=== PATIENT | male | born 1960 | race Caucasian/White ===

== ENCOUNTER → 2021-09-21 11:34 | Outpatient (CLI) | payer OTHER, SELFPAY ==
[2021-09-21 15:42] LABS: ALB/GLOB Ratio 0.9 RATIO (0.9-2.4); AST(SGOT) 20 U/L (15-37); Alanine Aminotransfer ALT/SGPT 30 U/L (16-61); Albumin, Serum 3.4 g/dL (3.2-5.0); Alkaline Phosphatase 99 U/L (45-117); Anion Gap 5 (5-15); BUN 19 mg/dL (7-18); BUN/Creat Ratio 17.4 RATIO (10-20); Chloride 106 mmol/L (98-107); Cholesterol 179 mg/dL (200); Creatinine, Serum 1.09 mg/dL (0.70-1.30); EST Glomerular Filtration Rate 73 mL/min (>60); Est Glom Filt Rate - Afr Amer 88 mL/min (>60); Globulin 3.7 g/dL (2.2-4.2); Glucose 85 mg/dL (74-106); High Density Lipoprotein 39 mg/dL; PSA,Total - Annual Screen 1.64 ng/mL (0.00-4.00); Potassium 3.8 mmol/L (3.5-5.1); Protein, Total 7.1 g/dL (6.4-8.2); Sodium Level 140 mmol/L (136-145); Triglycerides 85 mg/dL; Very Low Density Lipoprotein 17 mg/dL (5-40)
== END ==
LOC: MFPLAB 11:37
PROVIDERS: PCP Family Medicine; Referring Provider Family Medicine; Visit Provider Family Medicine
DX: Z00.00 Encounter for general adult medical examination without abnormal findings (principal); Z12.5 Encounter for screening for malignant neoplasm of prostate; I10 Essential (primary) hypertension
CPT/HCPCS: 36415; 80053; 80061; 84153; 84403; G0103

== ENCOUNTER → 2021-10-04 11:40 | Outpatient (CLI) | payer OTHER, SELFPAY ==
[2021-10-04 15:06] LABS: Absolute Lymphocyte Count 2.17 X10^3/uL (0.83-4.51); Basophil# 0.02 X10^3/uL; Basophil% 0.3 % (0-1); Eosinophil# 0.02 X10^3/uL; Eosinophils% 0.3 % (0-5); Hematocrit 48.7 % (40-54); Hemoglobin 16.2 g/dL (13.0-16.5); Lymphocyte # 2.17 X10^3/ul (0.83-4.51); Lymphocyte % 35.9 % (19-41); Mean Corp Hgb Conc 33.3 g/dL (32-36); Mean Corpuscular Hgb 28.6 pg (27.0-32.0); Mean Platelet Vol. 12.5 fl (6.2-12.0); Monocyte# 0.79 X10^3/uL; Monocyte% 13.1 % (0-10); NRBC Flagged by Analyzer 0 % (0-5); Neutrophil # 3.01 X10^3/uL (2.7-7.7); Neutrophil % 49.7 % (47-70); Platelet Count 209 K/mm3 (150-450); RBC Distribution Width CV 12.7 % (11.6-14.6); RBC Distribution Width SD 40.1 fl (35.1-43.9); Red Blood Count 5.66 M/mm3 (4.6-6.2); White Blood Count 6.1 K/mm3 (4.4-11.0)
[2021-10-04 15:20] LABS: ALB/GLOB Ratio 0.8 RATIO (0.9-2.4); AST(SGOT) 32 U/L (15-37); Alanine Aminotransfer ALT/SGPT 47 U/L (16-61); Albumin, Serum 3.4 g/dL (3.2-5.0); Alkaline Phosphatase 89 U/L (45-117); Anion Gap 7 (5-15); BUN 37 mg/dL (7-18); BUN/Creat Ratio 21.4 RATIO (10-20); Calcium,Total 8.5 mg/dL (8.5-10.1); Chloride 97 mmol/L (98-107); Creatinine, Serum 1.73 mg/dL (0.70-1.30); EST Glomerular Filtration Rate 43 mL/min (>60); Est Glom Filt Rate - Afr Amer 52 mL/min (>60); Globulin 4.4 g/dL (2.2-4.2); Glucose 90 mg/dL (74-106); Potassium 3.4 mmol/L (3.5-5.1); Protein, Total 7.8 g/dL (6.4-8.2); Sodium Level 135 mmol/L (136-145)
== END ==
LOC: MFPLAB 11:46
PROVIDERS: PCP Family Medicine; Referring Provider Family Medicine; Visit Provider Family Medicine
DX: R19.8 Other specified symptoms and signs involving the digestive system and abdomen (principal)
CPT/HCPCS: 36415; 80053; 85025

== ENCOUNTER → 2021-10-04 15:02 | Outpatient (CLI) | payer OTHER, SELFPAY ==
--- NOTE | 2021-10-04 15:07 | CT_ITS ---
STUDY: CT ABDOMEN AND PELVIS WITH CONTRAST REASON FOR EXAM: Male, 61 years old. TYMPANIC ABD RADIATION DOSAGE (If Supplied By Facility): CTDIvol = ( 17.51 ) mGy, DLP = ( 930.56 ) mGycm TECHNIQUE: Transaxial images were obtained from the dome of the diaphragm to the symphysis pubis without oral contrast. Oral and amp; IV Gastrografin and amp; 100mL Isovue-370 was administered. Sagittal and coronal images were reconstructed. Individualized dose optimization techniques were used for this CT. COMPARISON: None. FINDINGS: There are small nonspecific subtle patchy airspace opacities in the right lower lobe. The visualized portions of the heart are within normal limits. Small hiatal hernia is noted. Normal liver. Mildly contracted thick-walled gallbladder without calcified stones likely physiologic however if concern for gallbladder disease ultrasound recommended. Normal spleen. Normal pancreas. Normal bilateral adrenal glands. No evidence for renal obstruction. Small bilateral simple cysts in each kidney Normal visualized stomach. Normal small intestine. Minor diverticular changes of the colon without evidence for acute diverticulitis. The appendix is visualized and appears normal. Mild atherosclerotic changes of the aorta without evidence for aneurysm. Normal inferior vena cava. Normal retroperitoneum. Normal urinary bladder. Small bilateral fat-containing inguinal hernias. Lumbar spine demonstrates degenerative change. Grade 1 spondylolysis at L5-S1. CT/Abdomen/Pelvis WITH Contrast IMPRESSION: Small subtle nodular airspace opacities in the right lower lobe of indeterminate etiology. Cannot exclude mild focal inflammatory changes Contracted thick-walled gallbladder without calcified stones likely physiologic Minor diverticular changes of the colon without evidence for acute diverticulitis No evidence for small bowel obstruction Other findings as above Electronically Signed: Jones Flores MD at 17:50 EST , Service support ,
== END ==
LOC: CT 15:04
PROVIDERS: PCP Family Medicine; Referring Provider Family Medicine; Visit Provider Family Medicine
DX: R14.0 Abdominal distension (gaseous) (principal)
CPT/HCPCS: 74177; Q9967

== ENCOUNTER 2021-10-04 20:01 | Observation (INO) | payer OTHER, SELFPAY ==
[2021-10-04 20:02] VITALS: BP 127/86; PULSE 82; RESP 16; TEMP 36.6; O2SAT 95; BMI 26.1
--- NOTE | 2021-10-04 20:15 | EDS_ITS ---
HPI History of Present Illness Chief Complaint: General Illness Informant: patient Onset/Context/Timing Onset: Days Context: Gradual Onset Timing: Continuous Quality: Pressure, distended Location: Abdomen Worsened by: Nothing Relieved by: Nothing Narrative Narrative: Patient presents with acute kidney injury that was noticed today. Patient was having some abdominal pain and his primary care physician ordered a CT scan of the abdomen pelvis with contrast. His primary care physician stated that this was normal. Patient had lab work drawn which showed an elevated creatinine of 1.73 as an outpatient. Patient has had normal creatinines in the past. Patient was then referred to the emergency department. Patient states he still has some pressure and mild distention of his abdomen. Patient admits to some diarrhea. Patient denies any nausea or vomiting. PFSH PFS Home Medications lisinopril-hydrochlorothiazide 1 tab PO DAILY 10/04/21 [History Last Taken Unknown] Allergy/AdvReac Type Severity Reaction Status Date / Time No Known Allergies Allergy Verified 10/04/21 20:04 Surgical History Fracture of jaw Social History Smoking Status: Former smoker Tobacco: How many years used: 40 alcohol intake: current ROS ROS ED Constitutional Constitutional ED: Denies chills or fever(s) Eyes Eyes: Denies blurry vision or change in vision ENT ENT ED: Denies rhinorrhea or sore throat Cardiovascular Cardiovascular: Reports chest pain; Denies palpitations Respiratory/Chest Respiratory/Chest: Reports cough; Denies dyspnea Gastrointestinal Gastrointestinal: Reports abdominal pain and diarrhea; Denies nausea or vomiting Genitourinary Genitourinary ED: Reports dysuria and hematuria Musculoskeletal Musculoskeletal: Reports back pain and neck pain Integumentary Denies abscess or rash Neurologic Neurologic: Denies headache(s) or weakness Allergic/Immunologic Allergic/Immunologic ED: Denies mouth swelling or urticaria EXAM Physical Exam Const Vital Signs: 10/04/21 20:02 10/04/21 20:46 Temperature 97.8 F Temperature Source Temporal Pulse Rate 82 Respiratory Rate 16 Respiratory Effort Normal Respiratory Pattern Normal Blood Pressure 127/86 H Blood Pressure Mean 99 Pulse Ox 95 Oxygen Delivery Method Room Air Positive well nourished and well developed General Appearance ED: well developed HEENT Reports moist mucous membranes Neck supple and no JVD Resp normal respiratory effort and clear to auscultation bilaterally Cardio regular rate, regular rhythm and no murmurs GI non-tender Inspection: abdominal distention Palpation: soft Extremity normal to inspection General Extremety ED: Negative for edema or tenderness General Extremity: Negative for edema Neuro oriented x3, CN's II-XII intact bilaterally and no sensory deficits noted Sensorium / Orientation: alert Motor Exam: strength 5/5 throughout Psych mental status grossly normal Skin no rashes or lesions noted MDM MDM MDM Narrative Medical decision making narrative: Patient was given IV fluids. CBC was within normal limits. Comprehensive metabolic profile showed an elevated creatinine of 1.75 and a BUN of 40. Urinalysis does not show any evidence of urinary tract infection. I did review the patient's CT scan of the abdomen pelvis. There is no acute process. There is no evidence of bowel obstruction. There is some diverticulosis but no diverticulitis. This was interpreted by the radiologist. Case was discussed with the hospitalist. She will admit the patient to her service for observation. Patient and family understood and were agreeable with the plan. All questions were answered Lab Data Attestation: I reviewed the patient's lab results. Labs: Laboratory Results - last 24 hr 10/04/21 10/04/21 10/04/21 20:45 20:45 21:25 WBC 5.8 RBC 5.60 Hgb 15.9 Hct 46.7 MCV 83.4 MCH 28.4 MCHC 34.0 RDW Std Deviation 38.4 RDW Coeff of Alla 12.6 Plt Count 220 MPV 11.5 Immature Gran % (Auto) 0.500 Neut % (Auto) 61.7 Lymph % (Auto) 27.3 [place] % (Auto) 9.9 Eos % (Auto) 0.3 Baso % (Auto) 0.3 Absolute Neuts (auto) 3.6 Absolute Lymphs (auto) 1.58 Nucleated RBC % 0 Sodium 132 L Potassium 3.1 L Chloride 94 L Carbon Dioxide 29.0 Anion Gap 9 BUN 40 H Creatinine 1.75 H Estim Creat Clear Calc 42.34 Est GFR (MDRD) Af Amer 51 L Est GFR (MDRD) Non-Af 42 L BUN/Creatinine Ratio 22.9 H Glucose 103 Calcium 8.3 L Total Bilirubin 0.50 AST 36 ALT 46 Alkaline Phosphatase 85 Total Protein 7.7 Albumin 3.4 Globulin 4.3 H Albumin/Globulin Ratio 0.8 L Urine Color Yellow Urine Clarity Clear Urine pH 5.0 Ur Specific [place] 1.015 Urine Protein 30 H Urine Glucose (UA) Normal Urine Ketones 5 H Urine Occult Blood 25 H Urine Nitrite Negative Urine Bilirubin Negative Urine Urobilinogen Normal Ur Leukocyte Esterase Negative Urine RBC 0-5 SEEN Urine WBC 0-5 SEEN Ur Squamous Epith Cells 0-5 SEEN Urine Bacteria 2+ Urine Mucus RARE Discharge Plan Triage Chief Complaint: General Illness ED Provider: Gage Duran Dx/Rx/DC Orders Clinical Impression: Acute kidney injury Prescriptions: No Action lisinopril-hydrochlorothiazide 20-25 mg tablet 1 tab PO DAILY RF: 0 Primary Care Provider: Flaquito Hillman Referrals: Flaquito Hillman MD [Primary Care Provider] - Disposition Disposition: Acute Care [facility]
[2021-10-04] MEDS: 0.9% Normal Saline 1,000 ML 1000 ML IV (20:45)
[2021-10-04 20:57] LABS: Absolute Lymphocyte Count 1.58 X10^3/uL (0.83-4.51); Absolute Neutrophil Count 3.6 X10^3/uL (2.0-7.7); Basophil# 0.02 X10^3/uL; Basophil% 0.3 % (0-1); Eosinophil# 0.02 X10^3/uL; Eosinophils% 0.3 % (0-5); Hematocrit 46.7 % (40-54); Hemoglobin 15.9 g/dL (13.0-16.5); Lymphocyte # 1.58 X10^3/ul (0.83-4.51); Lymphocyte % 27.3 % (19-41); Mean Corpuscular Hgb 28.4 pg (27.0-32.0); Mean Corpuscular Volume 83.4 fL (80-94); Mean Platelet Vol. 11.5 fl (6.2-12.0); Monocyte# 0.57 X10^3/uL; Monocyte% 9.9 % (0-10); NRBC Flagged by Analyzer 0 % (0-5); Neutrophil # 3.56 X10^3/uL (2.7-7.7); Neutrophil % 61.7 % (47-70); Platelet Count 220 K/mm3 (150-450); RBC Distribution Width CV 12.6 % (11.6-14.6); RBC Distribution Width SD 38.4 fl (35.1-43.9); White Blood Count 5.8 K/mm3 (4.4-11.0)
[2021-10-04 21:18] LABS: ALB/GLOB Ratio 0.8 RATIO (0.9-2.4); AST(SGOT) 36 U/L (15-37); Alanine Aminotransfer ALT/SGPT 46 U/L (16-61); Albumin, Serum 3.4 g/dL (3.2-5.0); Alkaline Phosphatase 85 U/L (45-117); Anion Gap 9 (5-15); BUN 40 mg/dL (7-18); BUN/Creat Ratio 22.9 RATIO (10-20); Calcium,Total 8.3 mg/dL (8.5-10.1); Chloride 94 mmol/L (98-107); Creatinine, Serum 1.75 mg/dL (0.70-1.30); EST Glomerular Filtration Rate 42 mL/min (>60); Est Glom Filt Rate - Afr Amer 51 mL/min (>60); Estimated Creatinine Clearance 42.34 ml/min; Globulin 4.3 g/dL (2.2-4.2); Glucose 103 mg/dL (74-106); Potassium 3.1 mmol/L (3.5-5.1); Protein, Total 7.7 g/dL (6.4-8.2); Sodium Level 132 mmol/L (136-145)
[2021-10-04 21:42] LABS: Color, Urine Yellow (Yellow); Glucose, Dipstick Normal (Normal); Ketone-Dipstick 5 mg/dl (Negative); Leukocyte Esterase-Dipstick Negative /ul (Negative); Nitrite-Dipstick Negative (Negative); Occult Blood-Urine 25 /ul (Negative); Protein-Dipstick 30 mg/dl (Negative); Specific Gravity, Urine 1.015 (1.002-1.030); Urine Bilirubin Dipstick Negative (Negative); Urine Clarity Clear (Clear); Urine Urobilinogen Normal (Normal)
[2021-10-04 21:51] LABS: Bacteria 2+ /hpf (None Seen); Mucous, Urine RARE /hpf (<or=2+); Red Blood Cells-Urine 0-5 SEEN /hpf (0-5); Squamous Epithelial Cells - UA 0-5 SEEN /hpf (0-5); White Blood Cells 0-5 SEEN /hpf (0-5)
--- NOTE | 2021-10-04 22:33 | HP.PCM.HOS_ITS ---
HPI - General General Date of Admission: 10/04/21 Date of Service: 10/04/21 Chief Complaint: Increased Cr, referred per PCP office, recent abdominal pain, diarrhea HPI Narrative The patient is a 61 y/o M w/ PMHx: HTN, Former tobacco use who presents to the [facility] ED on 10/04/21 with history of several months of intermittent abdominal discomfort and bloating however notes recently over the last week he had increased abdominal bloating, cramping and onset of diarrhea over the last 24 hours in addition to significant fatigue, malaise, mild headaches, cough without any significant dyspnea prompting PCP to obtain CT abdomen following his e valuation and unfortunately he had continued creatinine rise following the contrast usage prompting PCP to refer him to the ED for hydration. Patient notes being unvaccinated against COVID. He does also report recent amoxicillin intake for a dental infection. Work-up in the ED included T 97.8, heart rate 82, BP 127/86, respiratory rate 16, 95 to 97% on room air, CBC with WC 5.8, hemoglobin 15.9, platelet 220 without marked shift, BMP with sodium 132, calcium 3.1, chloride 94, BUN/creatinine 40/1.75 otherwise not marked appearing. [facility] Medical History (Updated 10/05/21 @ 00:[address] Siobhan Velasquez MD) Former tobacco use HTN (hypertension) Home Medications lisinopril-hydrochlorothiazide 1 tab PO DAILY 10/04/21 [History Last Taken Unknown] Allergy/AdvReac Type Severity Reaction Status Date / Time No Known Allergies Allergy Verified 10/04/21 20:04 Family History (Updated 10/05/21 @ 00:[address] Siobhan Velasquez MD) Mother Heart disease CAD (coronary artery disease) Hypertension Father Heart disease CAD (coronary artery disease) Hypertension Parkinsons disease Other Uterine cancer Surgical History (Updated 10/05/21 @ 00:[address] Siobhan Velasquez MD) Fracture of jaw Social History (Updated 10/04/21 @ 23:20 by Halie Velasco) household members: significant other housing: house number of children: 2 service: No current occupational status: retired Smoking Status: Former smoker Tobacco: How many years used: 40 alcohol intake: current ROS ROS Narrative Admission Review of Systems: CONSTITUTIONAL: No weight loss, fever, chills, + weakness or fatigue. HEENT: + Headache. Eyes: No visual loss, blurred vision, double vision or yellow sclerae. Ears, Nose, Throat: No hearing loss, sneezing, congestion, runny nose or sore throat. SKIN: No rash or itching, lesions, wounds. CARDIOVASCULAR: No chest pain, chest pressure or chest discomfort, palpitations, edema, orthopnea, syncopal events. RESPIRATORY: + Cough. No shortness of breath, sputum, wheezing, hemoptysis. GASTROINTESTINAL: + anorexia, diarrhea, abdominal bloating and discomfort, No nausea, vomiting, melena, BRBPR. GENITOURINARY: No dysuria, frequency, urgency or retention. NEUROLOGICAL: + headache, No dizziness, syncope, paralysis, ataxia, numbness or tingling in the extremities, focal weakness, change in bowel or bladder control, seizure. MUSCULOSKELETAL: + muscle, back pain, joint pain or stiffness. HEMATOLOGIC: No anemia, bleeding or bruising. LYMPHATICS: No enlarged nodes. No history of splenectomy. PSYCHIATRIC: No history of depression or anxiety. ENDOCRINOLOGIC: No reports of sweating, cold or heat intolerance. No polyuria or polydipsia. ALLERGIES: No history of asthma, hives, eczema or rhinitis. Vital Signs Vital Signs Vital Signs: 10/04/21 20:02 10/04/21 20:46 Temperature 97.8 F Temperature Source Temporal Pulse Rate 82 Respiratory Rate 16 Respiratory Effort Normal Respiratory Pattern Normal Blood Pressure 127/86 H Blood Pressure Mean 99 Pulse Ox 95 Oxygen Delivery Method Room Air Weight Weight: 171 lb 9.6 oz Body Mass Index (BMI) 26.1 Physical Exam Narrative Physical Examination: General: Awake, alert, oriented x 3 and cooperative, laying in the bed, fatigued appearing. Skin: Normal color, normal turgor, no icterus, no cyanosis. HEENT: AT/NC, EOMI, PERRLA, mildly dry MM, slight jaw deformity status post jaw surgery and fracture, no carotid bruits or JVD noted. Lungs: Diminished, greater bases, appropriate effort, no rales, ronchi or wheezing. Heart: Regular rate and rhythm; no gallop, rub audible. Abdomen: Soft, mild discomfort with general palpation, moderately distended, hyperactive bowel sounds, no obvious HSM. Extremities: No cyanosis, clubbing, or edema. Neurological: Patient awake, alert, oriented as noted, cognitive function intact; pupils equally reactive to light and accommodation, cranial nerves II- XII grossly normal, moving all 4 extremities, no focal deficits, strength mildly to moderately global decrease secondary to acute presentation and complaints. Psychiatric: Affect appears fatigued otherwise normal, no acute evidence of depressive or anxiety feelings. Results Lab / Micro Data Result Diagrams: 10/04/21 20:45 10/04/21 20:45 Labs: Laboratory Results - last 24 hr 10/04/21 20:45: WBC 5.8, RBC 5.60, Hgb 15.9, Hct 46.7, MCV 83.4, MCH 28.4, MCHC 34.0, RDW Std Deviation 38.4, RDW Coeff of Alla 12.6, Plt Count 220, MPV 11.5, Immature Gran % (Auto) 0.500, Neut % (Auto) 61.7, Lymph % (Auto) 27.3, [place] % (Auto) 9.9, Eos % (Auto) 0.3, Baso % (Auto) 0.3, Absolute Neuts (auto) 3.6, Absolute Lymphs (auto) 1.58, Nucleated RBC % 0 10/04/21 20:45: Sodium 132 L, Potassium 3.1 L, Chloride 94 L, Carbon Dioxide 29.0, Anion Gap 9, BUN 40 H, Creatinine 1.75 H, Estim Creat Clear Calc 42.34, Est GFR (MDRD) Af Amer 51 L, Est GFR (MDRD) Non-Af 42 L, BUN/Creatinine Ratio 22.9 H, Glucose 103, Calcium 8.3 L, Total Bilirubin 0.50, AST 36, ALT 46, Alkaline Phosphatase 85, Total Protein 7.7, Albumin 3.4, Globulin 4.3 H, Albumin/Globulin Ratio 0.8 L 10/04/21 21:25: Urine Color Yellow, Urine Clarity Clear, Urine pH 5.0, Ur Specific [place] 1.015, Urine Protein 30 H, Urine Glucose (UA) Normal, Urine Ketones 5 H, Urine Occult Blood 25 H, Urine Nitrite Negative, Urine Bilirubin Negative, Urine Urobilinogen Normal, Ur Leukocyte Esterase Negative, Urine RBC 0-5 SEEN, Urine WBC 0-5 SEEN, Ur Squamous Epith Cells 0-5 SEEN, Urine Bacteria 2+, Urine Mucus RARE Assessment & Plan Assessment/Plan (1) Acute kidney injury: PLAN: The patient is a 61 y/o M w/ PMHx: HTN, Former tobacco use who pre sents to the [facility] ED on 10/04/21 with history of several months of intermittent abdominal discomfort and bloating however notes recently over the last week he had increased abdominal bloating, cramping and onset of diarrhea over the last 24 hours in addition to significant fatigue, malaise, mild headaches, cough without any significant dyspnea prompting PCP to obtain CT abdomen following his evaluation and unfortunately he had continued creatinine rise. 1. Acute kidney injury: Secondary to GI losses as well as recent contrast therapy. Admission BUN/Cr 40/1.75, prior baseline creatinine noted to be 1.0. Will hydrate, hold nephrotoxic medications and repeat chemistry in AM. If no improvement would plan FeNa assessment. 2. Abdominal discomfort, bloating, diarrhea with recent antibiotic therapies: To be cautious will obtain Covid PCR given patient symptoms certainly could be Covid however he also recently had antibiotic therapy thus will also obtain C. difficile and enteric pathogen if recurrent diarrhea. Will defer immediate antibiotic therapies as potentially viral, if positive C. difficile we will add oral vancomycin as well as lactobacillus, continue judicious hydration. 3. Hypokalemia: Admission K+ 3.1, magnesium level requested, supplementation given, repeat level in AM. 4. Hypertension: We will hold patient lisinopril/hydrochlorothiazide, as needed IV hydralazine in interim. 5. Former tobacco use: Encourage continued tobacco cessation. 6. GERD: We will maintain on PPI however if C. difficile positive will discontinue. From description patient has had dyspepsia ongoing and may benefit from outpatient follow-up with GI for upper endoscopy. 7. DVT prophylaxis: SCDs, heparin. Charges/Coding Visit Charges OBSV E&M: 14955 Initial observation care L3
[2021-10-04 22:43] VITALS: BP 131/82; PULSE 77; RESP 16; TEMP 36.7; O2SAT 97
[2021-10-04 23:02] VITALS: BMI 26.3
[2021-10-04 23:11] LABS: Magnesium 2.2 mg/dL (1.6-2.6)
[2021-10-04 23:12] VITALS: BP 119/78; PULSE 81; RESP 18; TEMP 38.1; O2SAT 96
[2021-10-05 00:05] VITALS: O2SAT 97
[2021-10-05] MEDS: Potassium Chloride Oral Tablet 20 MEQ 40 MEQ PO ×2 (00:35→11:30)
[2021-10-05] MEDS: 0.9% Normal Saline 1,000 ML 150 ML IV ×3 (00:37→14:57)
[2021-10-05 01:27] LABS: Probe Check PASS; Specimen Processing Control PASS
[2021-10-05 02:13] LABS: BNP,B-Type NATRIURETIC PEPTIDE 5.1 pg/mL (0-100)
[2021-10-05 03:28] LABS: Absolute Lymphocyte Count 1.77 X10^3/uL (0.83-4.51); Absolute Neutrophil Count 2.5 X10^3/uL (2.0-7.7); Basophil# 0.02 X10^3/uL; Basophil% 0.4 % (0-1); Eosinophil# 0.02 X10^3/uL; Eosinophils% 0.4 % (0-5); Hematocrit 42.7 % (40-54); Hemoglobin 14.5 g/dL (13.0-16.5); Lymphocyte # 1.77 X10^3/ul (0.83-4.51); Lymphocyte % 36.2 % (19-41); Mean Corpuscular Hgb 28.7 pg (27.0-32.0); Mean Corpuscular Volume 84.6 fL (80-94); Mean Platelet Vol. 11.5 fl (6.2-12.0); Monocyte# 0.51 X10^3/uL; Monocyte% 10.4 % (0-10); NRBC Flagged by Analyzer 0 % (0-5); Neutrophil # 2.54 X10^3/uL (2.7-7.7); Platelet Count 198 K/mm3 (150-450); RBC Distribution Width CV 12.5 % (11.6-14.6); RBC Distribution Width SD 38.6 fl (35.1-43.9); Red Blood Count 5.05 M/mm3 (4.6-6.2); White Blood Count 4.9 K/mm3 (4.4-11.0)
[2021-10-05 03:40] LABS: D-Dimer Quantitative (DVT/PE) 0.49 FEU/ug/m (0.27-0.49)
[2021-10-05 03:50] LABS: ALB/GLOB Ratio 0.7 RATIO (0.9-2.4); AST(SGOT) 28 U/L (15-37); Alanine Aminotransfer ALT/SGPT 38 U/L (16-61); Albumin, Serum 2.7 g/dL (3.2-5.0); Alkaline Phosphatase 72 U/L (45-117); Anion Gap 6 (5-15); BUN 35 mg/dL (7-18); BUN/Creat Ratio 26.5 RATIO (10-20); Calcium,Total 7.7 mg/dL (8.5-10.1); Chloride 100 mmol/L (98-107); Creatinine, Serum 1.32 mg/dL (0.70-1.30); EST Glomerular Filtration Rate 58 mL/min (>60); Est Glom Filt Rate - Afr Amer 71 mL/min (>60); Estimated Creatinine Clearance 56.14 ml/min; Globulin 3.8 g/dL (2.2-4.2); Glucose 103 mg/dL (74-106); Potassium 3.4 mmol/L (3.5-5.1); Protein, Total 6.5 g/dL (6.4-8.2); Sodium Level 135 mmol/L (136-145)
[2021-10-05 03:54] LABS: Ferritin 564 ng/mL (26-388); LDH 190 U/L (87-241)
[2021-10-05 04:06] LABS: Procalcitonin 0.11 ng/mL (0.00-0.09)
[2021-10-05 04:43] VITALS: BP 124/66; PULSE 77; RESP 16; TEMP 37.7; O2SAT 94
--- NOTE | 2021-10-05 07:15 | PCS.PANDOC ---
PANDEMIC DOCUMENTATION INITIATED: Date: 07/04/2021 Time: 190
[2021-10-05 08:10] VITALS: O2SAT 96
[2021-10-05 09:45] VITALS: BP 104/49; PULSE 82; RESP 16; TEMP 37.8; O2SAT 95
[2021-10-05] MEDS: Heparin Injection (Vial) 5,000 UNIT/ML VIAL 5000 UNIT SC (09:46)
[2021-10-05 11:44] VITALS: O2SAT 95; O2SAT 98
--- NOTE | 2021-10-05 12:00 | CASEMGMT ---
RONAL FELIX assessment: Initial transition planning/care coordination assessment. RONAL FELIX introduced self and role at [facility], pt voices understanding and consents to assessment. Pt is currently on room air in no distress and speaks in full sentences. Pt is A/Ox4 and answers all questions appropriately. Pt states is not vaccinated and states no concerns getting groceries/resources at discharge. Care providers, pharmacy, and demographics verified/updated. Presentation: Sent by MD for abnormal kidney fxn Admitting dx: MITRA, diarrhea, COVID PCP: Kady Specialists: Pt states no current specialists. Preferred Pharmacy: [facility] Insurance: [employer] Prescription Benefit: [employer] Living Will/HPOA: Pt states does not have LW/HPOA but would like AD info to look over. AD info into room by RONAL. LNOK: Valentine Mila, sig other; Tiff Arias, mother Living Arrangements: Pt lives with sig other in 2 story home and states no concerns at home. Pt is independent with ADL's. Transportation: Pt drives self and states no transportation concerns. DME/HHC: Pt states no current DME or need for any DME. Pt states no hx of HHC or SNF. Pt states no concerns with going home at time of discharge. Pt is retired. Pt states does not smoke cigarettes but does rarely drink ETOH. Pt voices no further concerns/needs. CM to follow for any further discharge planning/needs. Advised pt to ask for CM if any further questions/concerns/needs arise, voices understanding. Pt Goal: Home Plan[place] RONAL FELIX
[2021-10-05 15:00] VITALS: BP 137/78; PULSE 78; RESP 16; TEMP 38.5; O2SAT 95
[2021-10-05] MEDS: Acetaminophen 325 MG Tablet 650 MG PO (15:02)
--- NOTE | 2021-10-05 15:42 | RAD_ITS ---
STUDY: X-RAY CHEST REASON FOR EXAM: Male, 61 years old. Shortness of breath. TECHNIQUE: PA and lateral views of the chest. COMPARISON: None. FINDINGS: The lungs are clear and expanded. There is no demonstrated pleural abnormality. Normal size heart. Normal mediastinum and le[place]. Normal visualized pulmonary arteries. Normal visualized aortic arch and descending thoracic aorta. There are diffuse degenerative changes of the visualized thoracic spine. There is degenerative osteoarthritis of the bilateral shoulders. There is no demonstrated abnormality of the visualized soft tissue structures of the upper abdomen. RAD/Chest PA and Lateral IMPRESSION: Degenerative changes, as described above. No demonstrated acute cardiopulmonary process. Electronically Signed: Ulysses Aquino DO at 16:41 EST Tel [phone], Service support ,
--- NOTE | 2021-10-05 17:41 | PCM.DC ---
Discharge Instructions Diet Discharge Diet: Low fat / Low cholesterol Activity Discharge Activity: Return to Normal Activity Dressing / Incision Call your doctor if you observe: Fever of 101 or Higher, Shortness of breath, Dizziness, Fainting spells, Swelling in the ankles, Chest pain and Increased palpitations (irregular heartbeat) Follow Up Care Test Results: Test results from this visit will be discussed in further detail at your follow-up appointment, if applicable. Discharge Plan Admission Admit Date/Time: 10/04/21 22:33 Attending Provider: Som Lin Primary Care Provider: Flaquito Hillman Discharge Orders/Prescriptions Prescriptions: Continued lisinopril-hydrochlorothiazide 20-25 mg tablet 1 tab PO DAILY RF: 0 Referrals / Follow Up: Flaquito Hillman MD [Primary Care Provider] - Within 1 Week Disposition Disposition (needs filled in before D/C Order can be placed): Home, Self Care
--- NOTE | 2021-10-05 17:44 | DS.PCM_ITS ---
Providers Date of Admission: 10/04/21 Primary Care Physician: Dr. Flaquito Hillman MD Reason For Visit: MITRA, DIARRHEA Diagnosis Discharge Diagnosis (1) Acute kidney injury: Status: Acute Code(s): N17.9 - Acute kidney failure, unspecified Medications at Discharge Home Medications lisinopril-hydrochlorothiazide 1 tab PO DAILY 10/04/21 Hospital Course Operations None Procedures None Summary of Care Provided Minutes Spent on Discharge: 40 Hospital Course: Per HPI: The patient is a 61 y/o M w/ PMHx: HTN, Former tobacco use who presents to the [facility] ED on 10/04/21 with history of several months of intermittent abdominal discomfort and bloating however notes recently over the last week he had increased abdominal bloating, cramping and onset of diarrhea over the last 24 hours in addition to significant fatigue, malaise, mild headaches, cough without any significant dyspnea prompting PCP to obtain CT abdomen following his evaluation and unfortunately he had continued creatinine rise following the contrast usage prompting PCP to refer him to the ED for hydration. Patient notes being unvaccinated against COVID. He does also report recent amoxicillin intake for a dental infection. Work-up in the ED included T 97.8, heart rate 82, BP 127/86, respiratory rate 16, 95 to 97% on room air, CBC with WC 5.8, hemoglobin 15.9, platelet 220 without marked shift, BMP with sodium 132, calcium 3.1, chloride 94, BUN/creatinine 40/1.75 otherwise not marked appearing. Hospital Course: 1. MITRA with abdominal discomfort and bloating with [id number] male who presents to the hospital with a prolonged duration of abdominal discomfort and bloating as well as onset of diarrhea that started just yesterday. He was started on IV fluids and his creatinine improved and his MITRA resolved on the day of discharge. He has been following up with his PCP as an outpatient but has not found any etiology for the bloating and abdominal discomfort. CT scan of the abdomen and pelvis was unremarkable for any acute pathology. He did test positive for Covid and he states that this is the second time he has had Covid. However the first time he was not tested, he was on a plane back from [facility] then for 3 days felt like he was going to and then got better but he was never tested at that time. He is unvaccinated. He states that he has shortness of breath however his chest x-ray was unremarkable his D-dimer was normal and he was 98% on room air with ambulation. At this time will not treat for Covid we do not know exactly when his symptoms for Covid started secondary to the fact that he does not have any significant cough or shortness of breath and the abdominal discomfort has been going on for a few months now. I will have him follow-up with his PCP in 3 to 5 days. I did discuss with him the plan for discharge and expressed understanding the risk benefits of going home and would like to go home today, he does feel better. He might feel better with follow-up with gastroenterology as an outpatient for possible colonoscopy. 2. Hypertension, former tobacco use, GERD, all chronic medical conditions which complicate his care. His home medications were continued were appropriate Physical Exam Const alert, oriented x3 and no apparent distress General Appearance: cooperative HEENT normocephalic and moist oral mucous membranes Eyes PERRL, EOMs intact bilaterally and conjunctivae normal Neck supple and no JVD Resp normal respiratory effort, no retractions, no use of accessory muscles and clear to auscultation bilaterally Auscultation: Negative for crackles, rales, rhonchi or wheezes Cardio regular rate, regular rhythm, S1 normal heart sound, S2 normal heart sound and no murmurs GI soft to palpation, non-tender and non-distended; Negative for hepatosplenomegaly Extremity no clubbing, cyanosis or edema Skin no rashes or lesions noted Neuro no focal motor deficits and no sensory deficits noted Psych affect normal Appearance: appropriate Weight / BMI Weight Weight: 173 lb 4.533 oz Body Mass Index (BMI) 26.3 ABG / Lab / Microbiology Data Result Diagrams: 10/05/21 03:10 10/05/21 03:10 Laboratory: Laboratory Results - last 24 hr 10/04/21 20:45: WBC 5.8, RBC 5.60, Hgb 15.9, Hct 46.7, MCV 83.4, MCH 28.4, MCHC 34.0, RDW Std Deviation 38.4, RDW Coeff of Lala 12.6, Plt Count 220, MPV 11.5, Immature Gran % (Auto) 0.500, Neut % (Auto) 61.7, Lymph % (Auto) 27.3, Tillman % (Auto) 9.9, Eos % (Auto) 0.3, Baso % (Auto) 0.3, Absolute Neuts (auto) 3.6, Absolute Lymphs (auto) 1.58, Nucleated RBC % 0 10/04/21 20:45: Sodium 132 L, Potassium 3.1 L, Chloride 94 L, Carbon Dioxide 29.0, Anion Gap 9, BUN 40 H, Creatinine 1.75 H, Estim Creat Clear Calc 42.34, Est GFR (MDRD) Af Amer 51 L, Est GFR (MDRD) Non-Af 42 L, BUN/Creatinine Ratio 22.9 H, Glucose 103, Calcium 8.3 L, Total Bilirubin 0.50, AST 36, ALT 46, Alkaline Phosphatase 85, Total Protein 7.7, Albumin 3.4, Globulin 4.3 H, Alb umin/Globulin Ratio 0.8 L 10/04/21 20:45: Magnesium 2.2 10/04/21 20:45: B-Natriuretic Peptide 5.1 10/04/21 21:25: Urine Color Yellow, Urine Clarity Clear, Urine pH 5.0, Ur Specific [place] 1.015, Urine Protein 30 H, Urine Glucose (UA) Normal, Urine Ketones 5 H, Urine Occult Blood 25 H, Urine Nitrite Negative, Urine Bilirubin Negative, Urine Urobilinogen Normal, Ur Leukocyte Esterase Negative, Urine RBC 0-5 SEEN, Urine WBC 0-5 SEEN, Ur Squamous Epith Cells 0-5 SEEN, Urine Bacteria 2+, Urine Mucus RARE 10/05/21 00:05: COVID-19 (DANIEL) Positive 10/05/21 03:10: WBC 4.9, RBC 5.05, Hgb 14.5, Hct 42.7, MCV 84.6, MCH 28.7, MCHC 34.0, RDW Std Deviation 38.6, RDW Coeff of [place] 12.5, Plt Count 198, MPV 11.5, I mmature Gran % (Auto) 0.600, Neut % (Auto) 52.0, Lymph % (Auto) 36.2, Tillman % (Auto) 10.4 H, Eos % (Auto) 0.4, Baso % (Auto) 0.4, Absolute Neuts (auto) 2.5, Absolute Lymphs (auto) 1.77, Nucleated RBC % 0 10/05/21 03:10: Sodium 135 L, Potassium 3.4 L, Chloride 100, Carbon Dioxide 29.0, Anion Gap 6, BUN 35 H, Creatinine 1.32 H, Estim Creat Clear Calc 56.14, Est GFR (MDRD) Af Amer 71, Est GFR (MDRD) Non-Af 58 L, BUN/Creatinine Ratio 26.5 H, Glucose 103, Calcium 7.7 L, Total Bilirubin 0.30, AST 28, ALT 38, Alkaline Phosphatase 72, Total Protein 6.5, Albumin 2.7 L, Globulin 3.8, Albumin/Globulin Ratio 0.7 L 10/05/21 03:10: D-Dimer Quant (PE/DVT) 0.49 10/05/21 03:10: Ferritin 564 H, Lactate Dehydrogenase 190, C-React Prot Ext Range 13.10 H 10/05/21 03:10: Procalcitonin 0.11 H Microbiology: Microbiology 10/05/21 00:45 Stool Enteric Bacteriology - Final 10/05/21 00:45 Stool C. difficile DNA Amplification - Final 10/05/21 00:05 Mucosa - Nose Respiratory Panel (PCR) - Final 10/04/21 21:30 Urine, Random Streptococcus pneumoniae Antigen (M - Final 10/04/21 21:30 Urine, Random Legionella Antigen - Final Radiography Diagnostic Testing: Radiology Impression Chest X-Ray 10/05/21 15:42 IMPRESSION: Degenerative changes, as described above. No demonstrated acute cardiopulmonary process. Electronically Signed: Ulysses Aquino DO at 16:41 EST Tel [phone], Service support , D/C Instructions Discharge Diet: Low fat / Low cholesterol Call your doctor if you observe: Fever of 101 or Higher, Shortness of breath, Dizziness, Fainting spells, Swelling in the ankles, Chest pain and Increased palpitations (irregular heartbeat) Meaningful Use Info Meaningful Use Diagnoses (Choose all that apply): None applicable Discharge Plan Admission Admit Date/Time: 10/04/21 22:33 Attending Provider: Som Lin Primary Care Provider: Flaquito Hillman Discharge Orders/Prescriptions Prescriptions: Continued lisinopril-hydrochlorothiazide 20-25 mg tablet 1 tab PO DAILY RF: 0 Referrals / Follow Up: Flaquito Hillman MD [Primary Care Provider] - Within 1 Week Disposition Disposition (needs filled in before D/C Order can be placed): Home, Self Care Charges/Coding Visit Charges OBSV E&M: 03898 Observation care discharge
== END 2021-10-05 17:43 | disposition home or self-care (01) ==
LOC: ED 22:26 → PCU 22:33
PROVIDERS: Admitting Provider Family Medicine; Emergency Provider Emergency Medicine; PCP Family Medicine; Visit Provider Family Medicine
DX: N17.9 Acute kidney failure, unspecified (principal); U07.1 COVID-19; R19.7 Diarrhea, unspecified; I10 Essential (primary) hypertension; E87.6 Hypokalemia; K21.9 Gastro-esophageal reflux disease without esophagitis; Z87.891 Personal history of nicotine dependence; Z79.899 Other long term (current) drug therapy; Z28.3 Underimmunization status
CPT/HCPCS: 36415; 71046; 80053; 81001; 82728; 83615; 83735; 83880; 84145; 85025; 85379; 86140; 87449; 87493; 87506; 87633; 87635; 96360; 96361; 96372; 99218; 99284; J7030; J7040; U0005; G0378; U0003

== ENCOUNTER → 2022-09-20 | Outpatient (CLI) | payer OTHER, SELFPAY ==
[2022-09-20 13:31] LABS: Anion Gap 5 (5-15); BUN 27 mg/dL (7-18); BUN/Creat Ratio 22.5 RATIO (10-20); Calcium,Total 9.5 mg/dL (8.5-10.1); Chloride 103 mmol/L (98-107); Cholesterol 192 mg/dL (200); EST Glomerular Filtration Rate 65 mL/min (>60); Est Glom Filt Rate - Afr Amer 79 mL/min (>60); Glucose 86 mg/dL (74-106); High Density Lipoprotein 39 mg/dL; PSA,Total - Annual Screen 1.49 ng/mL (0.00-4.00); Potassium 3.7 mmol/L (3.5-5.1); Sodium Level 140 mmol/L (136-145); Triglycerides 146 mg/dL; Very Low Density Lipoprotein 29 mg/dL (5-40)
== END | disposition home or self-care (01) ==
LOC: MFPLAB 11:11
PROVIDERS: PCP Family Medicine; Referring Provider Family Medicine; Visit Provider Family Medicine
DX: Z12.5 Encounter for screening for malignant neoplasm of prostate (principal); I10 Essential (primary) hypertension
CPT/HCPCS: 36415; 80048; 80061; 84153; G0103

== ENCOUNTER → 2023-03-21 | Outpatient (CLI) | payer OTHER, SELFPAY ==
[2023-03-21 13:12] LABS: Anion Gap 8 (5-15); BUN 20 mg/dL (7-18); BUN/Creat Ratio 14.9 RATIO (10-20); Chloride 103 mmol/L (98-107); Cholesterol 181 mg/dL (200); Creatinine, Serum 1.34 mg/dL (0.70-1.30); EST Glomerular Filtration Rate 57 mL/min (>60); Est Glom Filt Rate - Afr Amer 69 mL/min (>60); Glucose 88 mg/dL (74-106); High Density Lipoprotein 33 mg/dL; Potassium 3.3 mmol/L (3.5-5.1); Sodium Level 139 mmol/L (136-145); Triglycerides 123 mg/dL; Very Low Density Lipoprotein 25 mg/dL (5-40)
== END | disposition home or self-care (01) ==
LOC: MTLAB 10:21
PROVIDERS: PCP Family Medicine; Referring Provider Family Medicine; Visit Provider Family Medicine
DX: Z00.00 Encounter for general adult medical examination without abnormal findings (principal); I10 Essential (primary) hypertension
CPT/HCPCS: 36415; 80048; 80061; 84403

== ENCOUNTER → 2024-07-16 | Outpatient (CLI) | payer MEDICARE, SELFPAY ==
[2024-07-16 12:34] LABS: Absolute Neutrophil Count 4.3 X10^3/uL (2.0-7.7); Basophil# 0.09 X10^3/uL; Basophil% 1.2 % (0-1); Eosinophil# 0.22 X10^3/uL; Hematocrit 45.1 % (40-54); Lymphocyte % 28.6 % (19-41); Mean Corp Hgb Conc 33.3 g/dL (32-36); Mean Corpuscular Hgb 28.5 pg (27.0-32.0); Mean Corpuscular Volume 85.6 fL (80-94); Mean Platelet Vol. 11.3 fl (6.2-12.0); Monocyte# 0.59 X10^3/uL; NRBC Flagged by Analyzer 0 % (0-5); Neutrophil # 4.29 X10^3/uL (2.7-7.7); Neutrophil % 58.4 % (47-70); Platelet Count 277 K/mm3 (150-450); RBC Distribution Width CV 13.1 % (11.6-14.6); RBC Distribution Width SD 40.5 fl (35.1-43.9); Red Blood Count 5.27 M/mm3 (4.6-6.2); White Blood Count 7.4 K/mm3 (4.4-11.0)
[2024-07-16 13:09] LABS: Anion Gap 7 (5-15); BUN 25 mg/dL (7-18); BUN/Creat Ratio 16.6 RATIO (10-20); Calcium,Total 9.2 mg/dL (8.5-10.1); Chloride 103 mmol/L (98-107); Creatinine, Serum 1.51 mg/dL (0.70-1.30); EST Glomerular Filtration Rate 50 mL/min (>60); Est Glom Filt Rate - Afr Amer 60 mL/min (>60); Glucose 111 mg/dL (74-106); Potassium 3.1 mmol/L (3.5-5.1); Sodium Level 139 mmol/L (136-145)
== END | disposition home or self-care (01) ==
PROVIDERS: PCP Family Medicine; Referring Provider Family Medicine; Visit Provider Family Medicine
DX: Z01.818 Encounter for other preprocedural examination (principal); I10 Essential (primary) hypertension
CPT/HCPCS: 36415; 80048; 85025

== ENCOUNTER → 2024-08-14 | Outpatient (CLI) | payer MEDICARE, SELFPAY ==
[2024-08-14 15:58] LABS: Anion Gap 7 (5-15); BUN 24 mg/dL (7-18); BUN/Creat Ratio 17.8 RATIO (10-20); Calcium,Total 9.2 mg/dL (8.5-10.1); Chloride 102 mmol/L (98-107); Creatinine, Serum 1.35 mg/dL (0.70-1.30); EST Glomerular Filtration Rate 56 mL/min (>60); Est Glom Filt Rate - Afr Amer 68 mL/min (>60); Glucose 91 mg/dL (74-106); Potassium 3.1 mmol/L (3.5-5.1); Sodium Level 138 mmol/L (136-145)
== END | disposition home or self-care (01) ==
PROVIDERS: PCP Family Medicine; Referring Provider Family Medicine; Visit Provider Family Medicine
DX: S37.009A Unspecified injury of unspecified kidney, initial encounter (principal)
CPT/HCPCS: 36415; 80048

== ENCOUNTER → 2024-09-02 | Outpatient (CLI) | payer MEDICARE, SELFPAY ==
[2024-09-02 15:55] LABS: Anion Gap 7 (5-15); BUN 21 mg/dL (7-18); BUN/Creat Ratio 14.9 RATIO (10-20); Calcium,Total 9.5 mg/dL (8.5-10.1); Chloride 100 mmol/L (98-107); Creatinine, Serum 1.41 mg/dL (0.70-1.30); EST Glomerular Filtration Rate 54 mL/min (>60); Est Glom Filt Rate - Afr Amer 65 mL/min (>60); Glucose 86 mg/dL (74-106); Potassium 3.3 mmol/L (3.5-5.1); Sodium Level 136 mmol/L (136-145)
== END | disposition home or self-care (01) ==
LOC: MTLAB 11:08
PROVIDERS: PCP Family Medicine; Referring Provider Family Medicine; Visit Provider Family Medicine
DX: I10 Essential (primary) hypertension (principal)
CPT/HCPCS: 36415; 80048

== ENCOUNTER → 2025-01-16 | Outpatient (CLI) | payer MEDICARE, SELFPAY ==
[2025-01-16 12:55] LABS: ALB/GLOB Ratio 1.5 RATIO (0.9-2.4); AST(SGOT) 26 U/L (<=37); Alanine Aminotransfer ALT/SGPT 28 U/L (<=46); Albumin, Serum 4.3 g/dL (3.4-4.8); Alkaline Phosphatase 82 U/L (40-129); Anion Gap 11 (5-15); BUN 18 mg/dL (4-19); BUN/Creat Ratio 14.3 RATIO (10-20); Calcium 10.4 mg/dL (7.6-11.0); Carbon Dioxide 27.2 mmol/L (22.0-29.0); Chloride 99 mmol/L (96-108); Cholesterol 193 mg/dL (<=200); Creatinine, Serum 1.25 mg/dL (0.70-1.20); EST Glomerular Filtration Rate 64 (>60); Globulin 2.9 g/dL (2.2-4.2); Glucose 99 mg/dL (70-99); High Density Lipoprotein 42 mg/dL; Low Density Lipoprotein Calc. 127 mg/dL; Potassium 3.7 mmol/L (3.3-5.1); Protein, Total 7.3 g/dL (5.9-8.4); Sodium Level 137 mmol/L (133-145); Total Bilirubin 0.46 mg/dL (0.00-1.30); Triglycerides 121 mg/dL; Very Low Density Lipoprotein 24 mg/dL (5-40); cholesterol:hdl ratio screen 4.62
== END | disposition home or self-care (01) ==
LOC: MTLAB 10:28
PROVIDERS: PCP Family Medicine; Referring Provider Family Medicine; Visit Provider Family Medicine
DX: I10 Essential (primary) hypertension (principal)
CPT/HCPCS: 36415; 80053; 80061

== ENCOUNTER → 2025-10-07 | Outpatient (CLI) | payer MEDICARE, SELFPAY ==
--- OUTSIDE RECORDS SUMMARY | 2025-10-07 12:08 | XMS RPT_ITS | CCD ---
Author Organization [facility] Care Team Providers Care Cherry Pitter Name Role Phone Unavailable Primary Care Provider Unavailabl e Flaquito Hillman Referring Unavailable Kady, Flaquito Attending Unavailable Kady, Flaquito Primary Care Unavailable Kady, Flaquito Referring Unavailable Hillman, Flaquito Attending Unavailable Kady, Flaquito Primary Care Unavailable Kady, Flaquito Referring Unavailable Hillman, Flaquito Attending Unavailable Kady, Flaquito Primary Care Unavailable Kday, Flaquito Referring Unavailable Kady, Flaquito Attending Unavailable Kady, Flaquito Primary Care Unavailable Kady CARR, Dr. Huddleston Primary Care Provider [phone] Kady CARR, Dr. Huddleston Attending Provider [phone] Kady CARR, Dr. Huddleston Referring Provider [phone] Medications Current Medications Medication Drug Class(es) Dates Sig (Normalized) Sig (Original) amoxicillin 875 mg / clavulanate 125 mg oral tablet (1 source) Penicillin-class Antibacterial Start: 09-26-2021 End: 10-06-2021 take 1 tablet by mouth twice daily amoxicillin-cla vulanic acid (AUGMENTIN) 875-125 mg per tablet Indications: Dental infection Take 1 tablet by mouth twice daily for 10 days. 20 tablet 0 09/26/2021 10/06/2021 Active Comment on above: Take 1 tablet by aung th twice daily for 10 days. hydroCHLOROthiazide 25 mg / lisinopril 20 mg oral tablet (4 sources) Thiazide Diuretic, Angiotensin Converting Enzyme Inhibitor Start: 10-04-2021 Lisinopril-Hydr ochlorothiazide 20-25 mg tablet Active 1 {tbl} PO DAILY October 04, 2021 1:00am Start: 10-04-2021 take 1 tablet by aung th once daily Lisinopril-Hydrochlorothiazide Active 1 TABLET PO DAILY October 04, 2021 1:00am Start: 09-19-2021 take 1 tablet by aung th once daily lisinopril-hydroCHLOROthiazide (PRINZIDE , ZESTORETIC) 20-25 mg per tablet Take 1 tablet by mouth once daily. 0 09/19/2021 Active Comment on above: Take 1 tablet by aung th once daily. Completed/Discontinued Medications Medication Drug Class(es) Dates Sig (Normalized) Sig (Original) ibuprofen 800 mg oral tablet (1 source) Nonsteroidal Anti-inflammatory Drug Start: 09-26-2021 take 1 tablet by mouth every eight hours as needed for pain ibuprofen (MOTRIN) 800 mg tablet Indications: Dental infection Take 1 tablet by mouth every 8 hours as needed for pain. Take with food. 30 tablet 1 09/26/2021 Active Comment on above: Take 1 tablet by aung th every 8 hours as needed for pain. Take with food. Problems Active Problems Problem Classification Problem Date Documented Da te Episodic/Chronic Acute and unspecified renal failure (3 sources) Injury of kidney; Translations: [Acute kidney failure, unspecified] 10-13-2021 Episodic Disorders of teeth and jaw (1 source) Infection of tooth; Translations: [Periapical abscess without sinus] Episodic Essential hypertension (1 source) Essential (primary) hypertension; Translations: [Essential (primary) hypertension] Onset: 01-29-2025 Chronic Immunizations and screening for infectious disease (3 sources) Contact with and (suspected) exposure to other viral communicable diseases; Translations: [Contact with or suspected exposure to other viral communicable disease] 09-23-2020 Episodic Past or Other Problems Problem Classification Problem Date Documented Da te Episodic/Chronic Crushing injury or internal injury (1 source) Unspecified injury of unspecified kidney, initial encounter; Translations: [Unspecified injury of unspecified kidney, initial encounter] Onset: 09-04-2024 Episodic Results Test Name Value Interpretation Reference Range Facility BUN/creatinine ratioOrdered By: Flaquito Hillman on 01-16-2025 Urea nitrogen/Creatinine [Mass ratio] 14.3 mg/mg 10-20 [facility] Bilirubin, totalOrdered By: Flaquito Hillman on 01-16-2025 Bilirubin [Mass/Vol] 0.46 mg/dL 0.00-1.30 [facility] Calculated very low density lipoprotein (VLDL) cholesterol measurementOrdered By: Flaquito Hillman on 01-16-2025 VLDL Cholesterol 24 mg/dL 5-40 [facility] Carbon dioxide measurementOr dered By: Flaquito Hillman on 01-16-2025 CO2 [Moles/Vol] 27.2 mmol/L 22.0-29.0 [facility] Chloride measurementOrdered By: Flaquito Hillman on 01-16-2025 Chloride [Moles/Vol] 99 mmol/L 96-108 [facility] Comprehensive Metabolic Prof ilon 01-16-2025 Albumin [Mass/Vol] 4.3 g/dL Normal 3.4-4.8 [facility] Comment on above: Performed By: #### L 500.4100, L500.4050 #### [facility] [address] [place], [address] Albumin/Globulin [Mass ratio] 1.5 {ratio} Normal 0.9-2.4 [facility] Comment on above: Performed By: #### L 500.4100, L500.4050 #### [facility] [address] [place], [address] ALK PHOS 82 U/L Normal 40-129 [facility] Comment on above: Performed By: #### L 500.4100, [id number] #### [facility] [address] [place], [address] ALT [Catalytic activity/Vol] 28 U/L Normal <=46 [facility] Comment on above: Performed By: #### L 500.4100, L500.4050 #### [facility] [address] [place], [address] Anion gap [Moles/Vol] 11 mmol/L Normal 5-15 [facility] Comment on above: Performed By: #### L 500.4100, [id number] #### [facility] [address] [place], [address] AST [Catalytic activity/Vol] 26 U/L Normal <=37 [facility] Comment on above: Performed By: #### L 500.4100, [id number] #### [facility] [address] [place], [address] Bilirubin [Mass/Vol] 0.46 mg/dL Normal 0.00-1.30 [facility] Comment on above: Performed By: #### L 500.4100, [id number] #### [facility] [address] [place], [address] BUN/CRE 14.3 RATIO Normal 10-20 [facility] Comment on above: Performed By: #### L 500.4100, [id number] #### [facility] [address] [place], [address] Calcium [Mass/Vol] 10.4 mg/dL Normal 7.6-11.0 [facility] Comment on above: Performed By: #### L 500.4100, [id number] #### [facility] [address] [place], [address] Chloride [Moles/Vol] 99 mmol/L Normal 96-108 [facility] Comment on above: Performed By: #### L 500.4100, [id number] #### [facility] [address] [place], [address] CO2 [Moles/Vol] 27.2 mmol/L Normal 22.0-29.0 [facility] Comment on above: Performed By: #### L 500.4100, [id number] #### [facility] [address] [place], [address] Creatinine [Mass/Vol] 1.25 mg/dL High 0.70-1.20 [facility] Comment on above: Performed By: #### L 500.4100, L500.4050 #### [facility] [address] [place], [address] GFR/1.73 sq M.predicted among non-blacks MDRD (S/P/Bld) [Vol rate/Area] 64 mL/min/{1.73_m2} Normal >60 [facility] Comment on above: Result Comment: mL/m in/1.73m2 CKD-EPI Creatinine Equation (2020) Performed By: #### L 500.4100, L500.4050 #### [facility] [address] [place], [address] Globulin (S) [Mass/Vol] 2.9 g/dL Normal 2.2-4.2 [facility] Comment on above: Performed By: #### L 500.4100, [id number] #### [facility] [address] [place], [address] Glucose [Mass/Vol] 99 mg/dL Normal 70-99 [facility] Comment on above: Performed By: #### L 500.4100, [id number] #### [facility] [address] [place], [address] Potassium [Moles/Vol] 3.7 mmol/L Normal 3.3-5.1 [facility] Comment on above: Performed By: #### L 500.4100, [id number] #### [facility] [address] [place], [address] Sodium [Moles/Vol] 137 mmol/L Normal 133-145 [facility] Comment on above: Performed By: #### L 500.4100, L500.4050 #### [facility] [address] [place], [address] T PROT 7.3 g/dL Normal 5.9-8.4 [facility] Comment on above: Performed By: #### L 500.4100, [id number] #### [facility] [address] [place], [address] Urea nitrogen [Mass/Vol] 18 mg/dL Normal 4-19 [facility] Comment on above: Performed By: #### L 500.4100, [id number] #### [facility] [address] [place], [address] GFR/1.73 sq M.predicted alfredo g non-blacks MDRD (S/P/Bld) [Vol rate/Area]Ordered By: Flaquito Hillman on 01-16-2025 Estimated GFR (MDRD) Non-Af Amer 64 >60 [facility] Comment on above: mL/min/1.73m2 CKD-EP I Creatinine Equation (2020) LDL calc ser/plasOrdered By: Flaquito Hillman on 01-16-2025 LDL Cholesterol, Calculated 127 mg/dL [facility] Comment on above: Lsbbbmirds=203-266 m g/dL & Higher Gfbb=476 mg/dL or greater Laboratory - Chemistry and C hemistry - challengeOrdered By: Flaquito Hillman on 01-16-2025 AST [Catalytic activity/Vol] 26 U/L <38 [facility] Lipid Profileon 01-16-2025 CHOL:HDL 4.62 Normal [facility] Comment on above: Performed By: #### L 500.4100, L500.4050 #### [facility] [address] [place], [address] Cholesterol [Mass/Vol] 193 mg/dL Normal <=200 [facility] Comment on above: Result Comment: Chol esterol level, Desirable <200 mg/dL Borderline high cholesterol 200-239 mg/dL High cholesterol >=240 mg/dL Recommendations of the NCEP Adult Treatment Panel for the following risk-cutoff thresholds for the [place] population. Performed By: #### L 500.4100, L500.4050 #### [facility] [address] [place], [address] Cholesterol in HDL [Mass/Vol] 42 mg/dL Normal [facility] Comment on above: Result Comment: Tessie onal Cholesterol Education Program (NCEP) guidelines: <40 mg/dL: Low HDL-cholesterol (major risk factor for CHD) >= 60 mg/dL: High HDL-cholesterol (negative risk factor for CHD) HDL-cholesterol is affected by a number of factors, e.g. smoking, exercise, hormones, sex and age. Performed By: #### L 500.4100, L500.4050 #### [facility] [address] [place], [address] Cholesterol in LDL [Mass/Vol] 127 mg/dL Normal [facility] Comment on above: Result Comment: Bord eufeht=258-337 mg/dL Higher Ijio=616 mg/dL or greater Performed By: #### L 500.4100, L500.4050 #### [facility] [address] [place], [address] Cholesterol in VLDL [Mass/Vol] 24 mg/dL Normal 5-40 [facility] Comment on above: Performed By: #### L 500.4100, L500.4050 #### [facility] [address] [place], [address] Triglyceride [Mass/Vol] 121 mg/dL Normal [facility] Comment on above: Result Comment: The drugs N-Acetylcysteine and Metamizole may falsely depress this assay. Normal range: <150 mg/dL Borderline High: 150-199 mg/dL High: 200-499 mg/dL Very High: >500 mg/dL Performed By: #### L 500.4100, L500.4050 #### [facility] [address] [place], [address] Screening total cholesterol/ high density lipoprotein (HDL) cholesterol ratioOrdered By: Flaquito Hillman on 01-16-2025 Cholesterol.total/Ashtyn sterol in HDL [Mass ratio] 4.62 {ratio} [facility] Serum creatinine measurement (mass/volume)Ordered By: Flaquito Hillman on 01-16-2025 Creatinine [Mass/Vol] 1.25 mg/dL High 0.70-1.20 [facility] Serum globulin measurementOr dered By: Flaquito Hillman on 01-16-2025 Globulin (S) [Mass/Vol] 2.9 g/dL 2.2-4.2 [facility] Serum glucose measurement (m ass/volume)Ordered By: Flaquito Hillman on 01-16-2025 Glucose [Mass/Vol] 99 mg/dL 70-99 [facility] Serum or plasma alanine sweet otransferase (ALT) measurementOrdered By: Flaquito Hillman on 01-16-2025 ALT [Catalytic activity/Vol] 28 U/L <47 [facility] Serum or plasma albumin damaris urement (mass/volume)Ordered By: Flaquito Hillman on 01-16-2025 Albumin [Mass/Vol] 4.3 g/dL 3.4-4.8 [facility] Serum or plasma albumin/glob ulin mass ratioOrdered By: Flaquito Hillman on 01-16-2025 Albumin/Globulin [Mass ratio] 1.5 {ratio} 0.9-2.4 [facility] Serum or plasma alkaline kiko sphatase measurementOrdered By: Flaquito Hillman on 01-16-2025 ALP [Catalytic activity/Vol] 82 U/L 40-129 [facility] Serum or plasma anion gap de termination (moles/volume)Ordered By: Flaquito Hillman on 01-16-2025 Anion gap [Moles/Vol] 11 mmol/L 5-15 [facility] Serum or plasma calcium damaris urement (mass/volume)Ordered By: Flaquito Hillman on 01-16-2025 Calcium [Mass/Vol] 10.4 mg/dL 7.6-11.0 [facility] Serum or plasma cholesterol in HDL measurement (mass/volume)Ordered By: Flaquito Hillman on 01-16-2025 Cholesterol in HDL [Mass/Vol] 42 mg/dL >40 [facility] Comment on above: National Cholesterol Education Program (NCEP) guidelines:<40 mg/dL: Low HDL-cholesterol (major risk factor for CHD)>= 60 mg/dL: High HDL-cholesterol (negative risk factor for CHD)HDL-cholesterol is affected by a number of factors, e.g. smoking, exercise, hormones, sex and age. Serum or plasma cholesterol measurement (mass/volume)Ordered By: Flaquito Hillman on 01-16-2025 Cholesterol [Mass/Vol] 193 mg/dL <201 [facility] Comment on above: Cholesterol level, D esirable <200 mg/dLBorderline high cholesterol 200-239 mg/dLHigh cholesterol >=240 mg/dLRecommendations of the NCEP Adult Treatment Panel for the following risk-cutoff thresholds for the [place] population. Serum or plasma potassium me asurementOrdered By: Flaquito Hillman on 01-16-2025 Potassium [Moles/Vol] 3.7 mmol/L 3.3-5.1 [facility] Serum or plasma sodium measu rement (moles/volume)Ordered By: Flaquito Hillman on 01-16-2025 Sodium [Moles/Vol] 137 mmol/L 133-145 [facility] Serum or plasma urea nitroge n measurement (mass/volume)Ordered By: Flaquito Hillman on 01-16-2025 Urea nitrogen [Mass/Vol] 18 mg/dL 4-19 [facility] Total proteinOrdered By: Jackelin Hillman on 01-16-2025 Protein [Mass/Vol] 7.3 g/dL 5.9-8.4 [facility] Triglycerides measurementOrd ered By: Flaquito Hillman on 01-16-2025 Triglyceride [Mass/Vol] 121 mg/dL <199 [facility] Comment on above: The drugs N-Acetylcy steine and Metamizole may falsely depress this assay. Normal range: <150 mg/dLBorderline High: 150-199 mg/dLHigh: 200-499 mg/dLVery High: >500 mg/dL Basic Metabolic Profile (BMP )on 09-02-2024 BUN/CRE 14.9 RATIO Normal 10-20 [facility] Comment on above: Order Comment: Order Date: 08/18/24 Order Info: 0667-1 - BMP Performed By: #### L 500.2500 #### [facility] [address] [place], [place], [address] CA,Total 9.5 mg/dL Normal 8.5-10.1 [facility] Comment on above: Order Comment: Order Date: 08/18/24 Order Info: 0667-1 - BMP Performed By: #### L 500.2500 #### [facility] [address] [place], [place], [address] Chloride [Moles/Vol] 100 mmol/L Normal 98-107 [facility] Comment on above: Order Comment: Order Date: 08/18/24 Order Info: 0667 - BMP Performed By: #### L 500.2500 #### [facility] [address] [place], [place], [address] CO2 [Moles/Vol] 30.0 mmol/L Normal 21.0-32.0 [facility] Comment on above: Order Comment: Order Date: 08/18/24 Order Info: 666-11 - BMP Performed By: #### L 500.2500 #### [facility] [address] [place], [address] Creatinine [Mass/Vol] 1.41 mg/dL High 0.70-1.30 [facility] Comment on above: Order Comment: Order Date: 08/18/24 Order Info: 666-11 - BMP Result Comment: The validity of the calculated GFR GFRAA in patients over 70 years has not been determined. Clinical correlation is essential. Performed By: #### L 500.2500 #### [facility] [address] [place], [address] EST GFR - AA 65 mL/min Normal >60 [facility] Comment on above: Order Comment: Order Date: 08/18/24 Order Info: 0667- - BMP Result Comment: Afri can [place]ian GFR Calc Performed By: #### L 500.2500 #### [facility] [address] [place], [address] GAP 7 Normal 5-15 [facility] Comment on above: Order Comment: Order Date: 08/18/24 Order Info: 0667 - BMP Performed By: #### L 500.2500 #### [facility] [address] [place], [address] GFR/1.73 sq M.predicted among non-blacks MDRD (S/P/Bld) [Vol rate/Area] 54 mL/min/{1.73_m2} Low >60 [facility] Comment on above: Order Comment: Order Date: 08/18/24 Order Info: 666- - BMP Result Comment: Non- GFR Calc Performed By: #### L 500.2500 #### [facility] [address] [place], [address] Glucose [Mass/Vol] 86 mg/dL Normal 74-106 [facility] Comment on above: Order Comment: Order Date: 08/18/24 Order Info: 666-11 - BMP Performed By: #### L 500.2500 #### [facility] [address] [place], [address] Potassium [Moles/Vol] 3.3 mmol/L Low 3.5-5.1 [facility] Comment on above: Order Comment: Order Date: 08/18/24 Order Info: 666-11 - BMP Performed By: #### L 500.2500 #### [facility] [address] [place], [address] Sodium [Moles/Vol] 136 mmol/L Normal 136-145 [facility] Comment on above: Order Comment: Order Date: 08/18/24 Order Info: 666-11 - BMP Performed By: #### L 500.2500 #### [facility] [address] [place], [address] Urea nitrogen [Mass/Vol] 21 mg/dL High 7-18 [facility] Comment on above: Order Comment: Order Date: 08/18/24 Order Info: 666-11 - BMP Performed By: #### L 500.2500 #### [facility] [address] [place], [address] Basic Metabolic Profile (BMP )on 08-14-2024 BUN/CRE 17.8 RATIO Normal 10-20 [facility] Comment on above: Order Comment: Order Date: 07/17/24 Order Info: 666-11 - BMP Performed By: #### L 500.2500 #### [facility] [address] [place], [address] CA,Total 9.2 mg/dL Normal 8.5-10.1 [facility] Comment on above: Order Comment: Order Date: 07/17/24 Order Info: 0667-1 - BMP Performed By: #### L 500.2500 #### [facility] [address] [place], [address] Chloride [Moles/Vol] 102 mmol/L Normal 98-107 [facility] Comment on above: Order Comment: Order Date: 07/17/24 Order Info: 0667 - BMP Performed By: #### L 500.2500 #### [facility] [address] [place], [address] CO2 [Moles/Vol] 29.0 mmol/L Normal 21.0-32.0 [facility] Comment on above: Order Comment: Order Date: 07/17/24 Order Info: 0667 - BMP Performed By: #### L 500.2500 #### [facility] [address] [place], [address] Creatinine [Mass/Vol] 1.35 mg/dL High 0.70-1.30 [facility] Comment on above: Order Comment: Order Date: 07/17/24 Order Info: 0667- - BMP Result Comment: The validity of the calculated GFR GFRAA in patients over 70 years has not been determined. Clinical correlation is essential. Performed By: #### L 500.2500 #### [facility] [address] [place], [address] EST GFR - AA 68 mL/min Normal >60 [facility] Comment on above: Order Comment: Order Date: 07/17/24 Order Info: 0667-1 - BMP Result Comment: Afri can [place] GFR Calc Performed By: #### L 500.2500 #### [facility] [address] [place], [address] GAP 7 Normal 5-15 [facility] Comment on above: Order Comment: Order Date: 07/17/24 Order Info: 0667 - BMP Performed By: #### L 500.2500 #### [facility] [address] [place], [address] GFR/1.73 sq M.predicted among non-blacks MDRD (S/P/Bld) [Vol rate/Area] 56 mL/min/{1.73_m2} Low >60 [facility] Comment on above: Order Comment: Order Date: 07/17/24 Order Info: 06- - BMP Result Comment: Non- GFR Calc Performed By: #### L 500.2500 #### [facility] [address] [place], [address] Glucose [Mass/Vol] 91 mg/dL Normal 74-106 [facility] Comment on above: Order Comment: Order Date: 07/17/24 Order Info: 666-11 - BMP Performed By: #### L 500.2500 #### [facility] [address] [place], [address] Potassium [Moles/Vol] 3.1 mmol/L Low 3.5-5.1 [facility] Comment on above: Order Comment: Order Date: 07/17/24 Order Info: 06 - BMP Performed By: #### L 500.2500 #### [facility] [address] [place], [address] Sodium [Moles/Vol] 138 mmol/L Normal 136-145 [facility] Comment on above: Order Comment: Order Date: 07/17/24 Order Info: 06- - BMP Performed By: #### L 500.2500 #### [facility] [address] [place], [address] Urea nitrogen [Mass/Vol] 24 mg/dL High 7-18 [facility] Comment on above: Order Comment: Order Date: 07/17/24 Order Info: 06- - BMP Performed By: #### L 500.2500 #### [facility] [address] [place], [address] Basic Metabolic Profile (BMP )on 07-16-2024 BUN/CRE 16.6 RATIO Normal 10-20 [facility] Comment on above: Performed By: #### L 500.2500, L100.0100 #### [facility] [address] [place], [address] CA,Total 9.2 mg/dL Normal 8.5-10.1 [facility] Comment on above: Performed By: #### L 500.2500, L100.0100 #### [facility] [address] [place], [address] Chloride [Moles/Vol] 103 mmol/L Normal 98-107 [facility] Comment on above: Performed By: #### L 500.2500, L100.0100 #### [facility] [address] [place], [address] CO2 [Moles/Vol] 29.0 mmol/L Normal 21.0-32.0 [facility] Comment on above: Performed By: #### L 500.2500, L100.0100 #### [facility] [address] [place], [address] Creatinine [Mass/Vol] 1.51 mg/dL High 0.70-1.30 [facility] Comment on above: Result Comment: The validity of the calculated GFR GFRAA in patients over 70 years has not been determined. Clinical correlation is essential. Performed By: #### L 500.2500, L100.0100 #### [facility] [address] [place], [address] EST GFR - AA 60 mL/min Normal >60 [facility] Comment on above: Result Comment: Afri can Pan[place]ian GFR Calc Performed By: #### L 500.2500, L100.0100 #### [facility] [address] [place], [address] GAP 7 Normal 5-15 [facility] Comment on above: Performed By: #### L 500.2500, L100.0100 #### [facility] [address] [place], [address] GFR/1.73 sq M.predicted among non-blacks MDRD (S/P/Bld) [Vol rate/Area] 50 mL/min/{1.73_m2} Low >60 [facility] Comment on above: Result Comment: Non- GFR Calc Performed By: #### L 500.2500, L100.0100 #### [facility] [address] [place], [address] Glucose [Mass/Vol] 111 mg/dL High 74-106 [facility] Comment on above: Result Comment: Fast ing Glucose result from 100 to 125 mg/dL suggests IMPAIRED HOMEOSTASIS per A.D.A. criteria. Performed By: #### L 500.2500, L100.0100 #### [facility] [address] [place], [address] Potassium [Moles/Vol] 3.1 mmol/L Low 3.5-5.1 [facility] Comment on above: Performed By: #### L 500.2500, L100.0100 #### [facility] [address] [place], [address] Sodium [Moles/Vol] 139 mmol/L Normal 136-145 [facility] Comment on above: Performed By: #### L 500.2500, L100.0100 #### [facility] [address] [place], [address] Urea nitrogen [Mass/Vol] 25 mg/dL High 7-18 [facility] Comment on above: Performed By: #### L 500.2500, L100.0100 #### [facility] [address] [place], [address] CBC W/Diff, Automatedon 08 Absolute Lymph 2.10 X10 3/uL Normal 0.83-4.51 [facility] Comment on above: Performed By: #### L 500.2500, L100.0100 #### [facility] [address] [place], [address] Absolute Neut 4.3 X10 3/uL Normal 2.0-7.7 [facility] Comment on above: Performed By: #### L 500.2500, L100.0100 #### [facility] [address] [place], [address] Basophils/100 WBC (Bld) 1.2 % High 0-1 [facility] Comment on above: Performed By: #### L 500.2500, L100.0100 #### [facility] [address] [place], [address] Eosinophils/100 WBC (Bld) 3.0 % Normal 0-5 [facility] Comment on above: Performed By: #### L 500.2500, L100.0100 #### [facility] [address] [place], [address] Erythrocyte distribution width (RBC) [Ratio] 13.1 % Normal 11.6-14.6 [facility] Comment on above: Performed By: #### L 500.2500, L100.0100 #### [facility] [address] [place], [address] Hematocrit (Bld) [Volume fraction] 45.1 % Normal 40-54 [facility] Comment on above: Performed By: #### L 500.2500, L100.0100 #### [facility] [address] [place], [address] Hemoglobin (Bld) [Mass/Vol] 15.0 g/dL Normal 13.0-16.5 [facility] Comment on above: Performed By: #### L 500.2500, L100.0100 #### [facility] [address] [place], [address] IG% 0.800 Normal 0.0-0.9 [facility] Comment on above: Result Comment: IG% - Immature Granulocytes (promyelocytes, myelocytes and metamyelocytes) > 1% indicates that a LEFT SHIFT is Present. Performed By: #### L 500.2500, L100.0100 #### [facility] [address] [place], [address] Lymphocytes/100 WBC (Bld) 28.6 % Normal 19-41 [facility] Comment on above: Performed By: #### L 500.2500, L100.0100 #### [facility] [address] [place], [address] MCH (RBC) [Entitic mass] 28.5 pg Normal 27.0-32.0 [facility] Comment on above: Performed By: #### L 500.2500, L100.0100 #### [facility] [address] [place], [address] MCHC (RBC) [Mass/Vol] 33.3 g/dL Normal 32-36 [facility] Comment on above: Performed By: #### L 500.2500, L100.0100 #### [facility] [address] [place], [address] MCV (RBC) [Entitic vol] 85.6 fL Normal 80-94 [facility] Comment on above: Performed By: #### L 500.2500, L100.0100 #### [facility] [address] [place], [address] Monocytes/100 WBC (Bld) 8.0 % Normal 0-10 [facility] Comment on above: Performed By: #### L 500.2500, L100.0100 #### [facility] [address] [place], [address] Neutrophils/100 WBC (Bld) 58.4 % Normal 47-70 [facility] Comment on above: Performed By: #### L 500.2500, L100.0100 #### [facility] [address] [place], [address] Nucleated RBC (Bld) [#/Vol] 0 10*3/uL Normal 0-5 [facility] Comment on above: Performed By: #### L 500.2500, L100.0100 #### [facility] [address] [place], [address] Platelet mean volume (Bld) [Entitic vol] 11.3 fL Normal 6.2-12.0 [facility] Comment on above: Performed By: #### L 500.2500, L100.0100 #### [facility] [address] [place], [address] Platelets (Bld) [#/Vol] 277 10*3/uL Normal 150-450 [facility] Comment on above: Performed By: #### L 500.2500, L100.0100 #### [facility] [address] [place], [address] RBC (Bld) [#/Vol] 5.27 10*6/uL Normal 4.6-6.2 [facility] Comment on above: Performed By: #### L 500.2500, L100.0100 #### [facility] [address] [place], [address] RDW SD 40.5 fl Normal 35.1-43.9 [facility] Comment on above: Performed By: #### L 500.2500, L100.0100 #### [facility] [address] [place], [address] WBC (Bld) [#/Vol] 7.4 10*3/uL Normal 4.4-11.0 [facility] Comment on above: Performed By: #### L 500.2500, L100.0100 #### [facility] [address] [place], [address] Basophil percentageOrdered B y: Dr. Hillman on 03-21-2023 Chloride [Moles/Vol] 103 mmol/L 98-107 [facility] Cholesterol [Mass/Vol] 181 mg/dL <200 [facility] Comment on above: <200 mg/dL Desirable 200-240 mg/dL Borderline >240 mg/dL High Risk Glucose [Mass/Vol] 88 mg/dL 74-106 [facility] Potassium [Moles/Vol] 3.3 mmol/L 3.5-5.1 [facility] Sodium [Moles/Vol] 139 mmol/L 136-145 [facility] Testosterone [Mass/Vol] 542.00 ng/dL [facility] Comment on above: CENTRAL 90% REFERENC E RANGES MALE AGE <50 197.44 - 669.58 ng/dL MALE AGE > or = 50 187.72 - 684.19 ng/dL FEMALE AGE <50 8.38 - 35.01 ng/dL FEMALE AGE > or = 50 <7.00 - 35.92 ng/dL Effective as of 06/14/21 Triglyceride [Mass/Vol] 123 mg/dL <199 [facility] Comment on above: The drugs N-Acetylcy steine and Metamizole may falsely depress this assay.Serum Triglycerides Reference Interval Normal <150 mg/dL Borderline high 150 - 199 mg/dL High 200 - 499 mg/dL Very High > or = 500 mg/dL Laboratory - Chemistry and C hemistry - challengeOrdered By: Dr. Hillman on 03-21-2023 CO2 [Moles/Vol] 28.0 mmol/L 21.0-32.0 [facility] Urea nitrogen/Creatinine [Mass ratio] 14.9 mg/mg 10- [facility] No Panel InformationOrdered By: Dr. Hillman on 03-21-2023 Estimated GFR (MDRD) Amer 69 mL/min >60 [facility] Comment on above: GFR Calc Estimated GFR (MDRD) Non-Af Amer 57 mL/min >60 [facility] Comment on above: Non- GFR Calc Serum or plasma calcium damaris urement (mass/volume)Ordered By: Dr. Hillman on 03-21-2023 Calcium [Mass/Vol] 9.0 mg/dL 8.5-10.1 [facility] Serum or plasma cholesterol in HDL measurement (mass/volume)Ordered By: Dr. Hillman on 03-21-2023 Cholesterol in HDL [Mass/Vol] 33 mg/dL >40 [facility] Comment on above: The drugs N-Acetylcy steine and Metamizole may falsely depress this assay. Reference Range HDL <40 mg/dL Low HDL Cholesterol HDL >or= 60 mg/dL High HDL Cholesterol Serum or plasma cholesterol in VLDL measurement (mass/volume)Ordered By: Dr. Hillman on 03-21-2023 Cholesterol in VLDL [Mass/Vol] 25 mg/dL 5-40 [facility] Serum or plasma creatinine m easurement (mass/volume)Ordered By: Dr. Hillman on 03-21-2023 Creatinine [Mass/Vol] 1.34 mg/dL 0.70-1.30 [facility] Comment on above: The validity of the calculated GFR & GFRAA in patients over 70 years has not been determined. Clinical correlation is essential. Serum or plasma low density lipoprotein (LDL) cholesterol measurement (mass/volume)Ordered By: Dr. Hillman on 03-21-2023 Cholesterol in LDL [Mass/Vol] 123 mg/dL 0-130 [facility] Serum or plasma urea nitroge n measurement (mass/volume)Ordered By: Dr. Hillman on 03-21-2023 Urea nitrogen [Mass/Vol] 20 mg/dL 7-18 [facility] Thin prep Papanicolaou smear with manual screeningOrdered By: Dr. Hillman on 03-21-2023 Thin prep Papanicolaou smear with manual screening 8 5-15 [facility] Basophil percentageon 2021 Chloride [Moles/Vol] 103 mmol/L 98-107 [facility] Work Phone: Cholesterol [Mass/Vol] 192 mg/dL <200 [facility] Work Phone: Comment on above: <200 mg/dL Desirable 200-240 mg/dL Borderline >240 mg/dL High Risk Glucose [Mass/Vol] 86 mg/dL 74-106 [facility] Work Phone: Potassium [Moles/Vol] 3.7 mmol/L 3.5-5.1 [facility] Work Phone: Sodium [Moles/Vol] 140 mmol/L 136-145 [facility] Work Phone: Triglyceride [Mass/Vol] 146 mg/dL <199 [facility] Work Phone: Comment on above: The drugs N-Acetylcy steine and Metamizole may falsely depress this assay.Serum Triglycerides Reference Interval Normal <150 mg/dL Borderline high 150 - 199 mg/dL High 200 - 499 mg/dL Very High > or = 500 mg/dL Laboratory - Chemistry and C hemistry - challengeon 09-20-2022 CO2 [Moles/Vol] 32.0 mmol/L 21.0-32.0 [facility] Work Phone: Urea nitrogen/Creatinine [Mass ratio] 22.5 mg/mg 10-20 [facility] Work Phone: No Panel Informationon 09-20 Estimated GFR (MDRD) Amer 79 mL/min >60 [facility] Work Phone: Comment on above: GFR Calc Estimated GFR (MDRD) Non-Af Amer 65 mL/min >60 [facility] Work Phone: Comment on above: Non- GFR Calc Prostate Specific Antigen Screen 1.49 ng/mL 0.00-4.00 [facility] Work Phone: Comment on above: This test was perfor med using the TPSA assay method for [facility]. Values obtained with differentassay methods cannot be used interchangably.When changing PSA assays in the course of monitoring apatient, additional sequential testing should be carriedout to confirm baseline values. Serum or plasma calcium damaris urement (mass/volume)on 09-20-2022 Calcium [Mass/Vol] 9.5 mg/dL 8.5-10.1 [facility] Work Phone: Serum or plasma cholesterol in HDL measurement (mass/volume)on 09-20-2022 Cholesterol in HDL [Mass/Vol] 39 mg/dL >40 [facility] Work Phone: Comment on above: The drugs N-Acetylcy steine and Metamizole may falsely depress this assay. Reference Range HDL <40 mg/dL Low HDL Cholesterol HDL >or= 60 mg/dL High HDL Cholesterol Serum or plasma cholesterol in VLDL measurement (mass/volume)on 09-20-2022 Cholesterol in VLDL [Mass/Vol] 29 mg/dL 5-40 [facility] Work Phone: Serum or plasma creatinine m easurement (mass/volume)on 09-20-2022 Creatinine [Mass/Vol] 1.20 mg/dL 0.70-1.30 [facility] Work Phone: Comment on above: The validity of the calculated GFR & GFRAA in patients over 70 years has not been determined. Clinical correlation is essential. Serum or plasma low density lipoprotein (LDL) cholesterol measurement (mass/volume)on 09-20-2022 Cholesterol in LDL [Mass/Vol] 124 mg/dL 0-130 [facility] Work Phone: Serum or plasma urea nitroge n measurement (mass/volume)on 09-20-2022 Urea nitrogen [Mass/Vol] 27 mg/dL 7-18 [facility] Work Phone: Thin prep Papanicolaou smear with manual screeningon 09-20-2022 Thin prep Papanicolaou smear with manual screening 5 5-15 [facility] Work Phone: CNOVon 09-26-2021 CNOV Office Visit ([facility]) ---- CADE ARIAS ([id number]) 1960 M Date Time Provider Department 09/26/21 5:15 PM ASHLEY SANTOS [facility] During your visit today, we recorded the following information about you: Temperature Pulse Respiration Blood pressure 98.3 degrees 71/minute 16/minute 140/90 Weight 79.4 kg Ashley Santos PA-C 09/26/2021 8:21 PM Signed Subjective HPI HPI Cade Arias is a 61 year old male who presents today for CC of worsening dental pain/probable infection in L upper region. Pt reports that he had a jaw fracture in his 20s, and had subsequent hairline cracks in his teeth. He states that he is going to be seen tomorrow at [facility] to have some teeth pulled, and they advised he come here to receive an antibiotic, as he called them tonight and told them the pain is radiating into his eye. Pt has tried IBU with minimal relief. BP 140/90 Pulse 71 Temp 36.8 ?C (98.3 ?F) Resp 16 Wt 79.4 kg (175 lb) SpO2 92% ALLERGIES No Known Allergies There is no problem list on file for this patient. No family history on file. Social History Tobacco Use - Smoking status: Former Smoker - Smokeless tobacco: Never Used Substance Use Topics - Alcohol use: Not on file - Drug use: Not on file Review of Systems Constitutional: Negative for chills, fever and malaise/fatigue. HENT: Positive for sinus pain. Negative for congestion, ear pain and sore throat. Respiratory: Negative for cough, sputum production, shortness of breath and wheezing. Cardiovascular: Negative for chest pain. Neurological: Negative for headaches. Objective Physical Exam HENT: Mouth/Throat: Dentition: Abnormal dentition. Gingival swelling and dental caries present. Comments: Cracked off teeth, with adjacent gingival swelling, most prominent in L upper teeth ASSESSMENT/PLAN: 1. Dental infection - ICD9: 522.4, ICD10: K04.7 Will go ahead and start on Augmentin for suspected dental infection. Explained that this is only a short term solution, and he needs proper evaluation and management by a dentist. Pt expressed understanding and agrees to the plan of care. - AMOXICILLIN 875 MG-POTASSIUM CLAVULANATE 125 MG TABLET Pt advised to see PCP if symptoms persist or progress. Reviewed red flags with patient and when to seek care sooner. The patient indicates understanding of these issues and agrees with the plan. TIFFANY Massey PA-C 09/26/2021 6:20 PM Signed Can alternate between Ibuprofen (800 MG) and Tylenol (1000) mg every 3-4 hours Max dosing of Ibuprofen 2400 mg in 24 hour period Max dosing of Tylenol is 3000 mg in 24 hour period Referring Provider: SELF [200] Allergies As of Date: 09/26/2021 (No Known Allergies) Date Reviewed: 09/26/2021 Reviewed by: Eugenia Moody MA - Fully Assessed Reason for Visit: Dental Problem [31] Cmt: chronic teeth issue, worsening x this AM Primary Visit Diagnosis:Dental infection [K04.7] Order(s):amoxicilli n-clavulanic acid (AUGMENTIN) 875-125 mg per tabletTake 1 tablet by mouth twice daily for 10 days.Disp: 20 tabletRfl: 0 ibuprofen (MOTRIN) 800 mg tabletTake 1 tablet by mouth every 8 hours as needed for pain. Take with food.Disp: 30 tabletRfl: 1 Prescriptions as of 09/26/2021 - lisinopril-hydroCHL OROthiazide (PRINZIDE, ZESTORETIC) 20-25 mg per tablet Take 1 tablet by mouth once daily. - amoxicillin-clavula pro acid (AUGMENTIN) 875-125 mg per tablet Take 1 tablet by mouth twice daily for 10 days. - ibuprofen (MOTRIN) 800 mg tablet Take 1 tablet by mouth every 8 hours as needed for pain. Take with food. Problem List As Of Date: 09/26/2021 (None) Other instructions from your clinician: Can alternate between Ibuprofen (800 MG) and Tylenol (1000) mg every 3-4 hours Max dosing of Ibuprofen 2400 mg in 24 hour period Max dosing of Tylenol is 3000 mg in 24 hour period Prescriptions ordered this encounter Disp Refills Start End AMOXICILLIN 875 MG-POTASSIUM CLAVULA* 20 t* 0 09/26/2021 10/06/2021 Route: ORAL Sig: Take 1 tablet by mouth twice daily for 10 days. IBUPROFEN 800 MG TABLET 30 t* 1 09/26/2021 Route: ORAL Sig: Take 1 tablet by mouth every 8 hours as needed for pain. Take with food. Encounter Status:Closed by ASHLEY SANTOS on 09/26/21 Normal [facility] Vital Signs Date Time Vital Sign Value Performing Clinician Lilian carlson 09-26-2021 17:50-0500 Body temperature 98.29 [degF] Ashley Denbow PA-C Work Phone: [facility] 09-26-2021 17:50-0500 Body weight 79.38 kg Ashley Denbow PA-C Work Phone: [facility] 09-26-2021 17:50-0500 Diastolic blood pressure 90 mm[Hg] Ashley Denbow PA-C Work Phone: [facility] 09-26-2021 17:50-0500 Heart rate 71 /min Ashley Denbow PA-C Work Phone: [facility] 09-26-2021 17:50-0500 Respiratory rate 16 /min Ashley Denbow PA-C Work Phone: [facility] 09-26-2021 17:50-0500 SaO2% (BldA) [Mass fraction] 92 % Ashley Denbow PA-C Work Phone: [facility] 09-26-2021 17:50-0500 Systolic blood pressure 140 mm[Hg] Ashley Denbow PA-C Work Phone: [facility] Encounters Encounter Date Encounter Type Care Provider Facility Start: 01-16-2025 End: 01-16-[address] Flaquito Hillman MD Work Phone: [facility] Work Phone: Start: 01-16-2025 End: 01-16-[address] Flaquito Hillman MD -Laboratory, [place] Work Phone: Start: 01-16-2025 End: 01-16-2025 ambulatory Flaquito Hillman Facility:[facility] Start: 09-02-2024 End: 09-02-2024 ambulatory Flaquito Hillman Facility:[facility] Start: 08-14-2024 End: 08-14-2024 ambulatory Flaquito Hillman Facility:[facility] Start: 07-29-2024 Encounter for other preprocedural examination Flaquito Hillman [facility] Start: 07-16-2024 End: 07-16-2024 ambulatory Flaquito Hillman Facility:[facility] Start: 03-21-2023 End: 03-21-2023 ambulatory [facility] Work Phone: Start: 03-21-2023 End: 03-21-2023 Patient encounter procedure [facility] Start: 09-20-2022 End: 09-20-2022 ambulatory [facility] Work Phone: Start: 09-20-2022 End: 09-20-2022 Patient encounter procedure [facility] Start: 09-26-2021 End: 09-26-2021 Patient encounter procedure Ashley Santos PA-C Work Phone: [facility] Comment on above: Dental infection (Pr imary Dx) Plan of Treatment Date Care Activity Detail Author Start: 2014 PROSTATE CANCER SCRE ENING DISCUSSION PROSTATE CANCER SCREENING DISCUSSION [facility] Start: 2009 SHINGRIX VACCINE (1 of 2) SHINGRIX V ACCINE (1 of 2) [facility] Start: 2004 COLOGUARD (FIT-DNA) COLOGUARD (FIT-D NA) [facility] Start: 2004 Colonoscopy COLONOSCOPY [facility] Start: 2004 COLORECTAL CANCER SCREENING COLORECTAL CANCER SCREENING [facility] Start: [address] COLONOGRAPHY [facility] Start: 2004 DIABETES SCREEN DIABETES SCREEN [facility] Start: 2004 FECAL OCCULT BLOOD FECAL OCCULT BLOO D [facility] Start: 2004 SIGMOIDOSCOPY SIGMOIDOSCOPY [facility] Start: 1994 LIPID SCREEN LIPID SCREEN [facility] Start: 1978 Urine microalbumin profile DTAP,TDAP ,TD (1 - Tdap) [facility] Start: 1977 HEPATITIS C SCREENING HEPATITIS C SC REENING [facility] Start: 1977 HIV SCREENING HIV SCREENING [facility] Start: 1971 Adult depression scr eening assessment DEPRESSION SCREENING [facility] Start: 1971 COVID-19 VACCINE (1) COVID-19 VACCIN E (1) [facility] Immunizations Immunization Date Immunization Notes Care Provider Fa cility 09-20-2021 influenza, injectabl e, quadrivalent, preservative free Dr. Flaquito Hillman MD Work Phone: [facility] 09-20-2021 influenza, seasonal, injectable [facility] Payers Date Payer Category Payer Medicare [id number] 2024 Self-pay [id number] 2020 Unknown [employer] PPO [id number] 2020-Present [phone] [address] [place] [address] PPO [id number] Private Health Insurance [employer] [id number] Unknown [employer] [id number] Unknown [id number] Unknown [id number] Unknown [id number] Unknown [id number] Social History Date Type Detail Facility Start: 09-26-2021 End: 10-04-2021 Tobacco smoking status IDIS Ex-smoker [facility] Start: 09-26-2021 Tobacco use and exposure Smokeless tobacco non-user [facility] Start: 1960 Sex Assigned At Not on file C [facility] Start: 10-04-2021 End: 10-04-2021 Tobacco smoking status IDIS Unknown if ever smoked [facility] Start: 1960 Sex Assigned At Male [facility] Start: 01-29-2025 Sex Male (finding) [facility] Progress note 09-26-2021 Note Date & Type Note Facility 09-26-2021 Note HNO ID: [id number] Author: Ashley Santos PA-C Service: ? Author Type: Physician [employer] Worker Type: Progress Notes Filed: 09/26/2021 8:21 PM Note Text: Subjective HPI HPI Cade Arias is a 61 year old male who presents today for CC of worsening dental pain/probable infection in L upper region. Pt reports that he had a jaw fracture in his 20s, and had subsequent "hairline cracks" in his teeth. He states that he is going to be seen tomorrow at [facility] to have some teeth pulled, and they advised he come here to receive an antibiotic, as he called them tonight and told them the pain is radiating into his eye. Pt has tried IBU with minimal relief. BP 140/90 Pulse 71 Temp 36.8 ?C (98.3 ?F) Resp 16 Wt 79.4 kg (175 lb) SpO2 92% ALLERGIES No Known Allergies There is no problem list on file for this patient. No family history on file. Social History Tobacco Use - Smoking status: Former Smoker - Smokeless tobacco: Never Used Substance Use Topics - Alcohol use: Not on file - Drug use: Not on file Review of Systems Constitutional: Negative for chills, fever and malaise/fatigue. HENT: Positive for sinus pain. Negative for congestion, ear pain and sore throat. Respiratory: Negative for cough, sputum production, shortness of breath and wheezing. Cardiovascular: Negative for chest pain. Neurological: Negative for headaches. Objective Physical Exam HENT: Mouth/Throat: Dentition: Abnormal dentition. Gingival swelling and dental caries present. Comments: Cracked off teeth, with adjacent gingival swelling, most prominent in L upper teeth ASSESSMENT/PLAN: 1. Dental infection - ICD9: 522.4, ICD10: K04.7 Will go ahead and start on Augmentin for suspected dental infection. Explained that this is only a short term solution, and he needs proper evaluation and management by a dentist. Pt expressed understanding and agrees to the plan of care. - AMOXICILLIN 875 MG-POTASSIUM CLAVULANATE 125 MG TABLET Pt advised to see PCP if symptoms persist or progress. Reviewed red flags with patient and when to seek care sooner. The patient indicates understanding of these issues and agrees with the plan. Ashley Santos PA-C [facility] Patient Instructions Note Date & Type Note Facility 09-26-2021 Instructions Ashley Santos PA-C - 09/26/2021 6:19 PM EST Can alternate between Ibuprofen (800 MG) and Tylenol (1000) mg every 3-4 hours Max dosing of Ibuprofen 2400 mg in 24 hour period Max dosing of Tylenol is 3000 mg in 24 hour period documented in this encounter [facility] History of Present illness Narrative 09-26-2021 Ashley Santos PA-C - 09/26/2021 6:09 PM EST Note Date & Type Note Facility 09-26-2021 History of Presen t illness Narrative Images from the original note were not included. Subjective HPI HPI Cade Arias is a 61 year old male who presents today for CC of worsening dental pain/probable infection in L upper region. Pt reports that he had a jaw fracture in his 20s, and had subsequent "hairline cracks" in his teeth. He states that he is going to be seen tomorrow at [facility] to have some teeth pulled, and they advised he come here to receive an antibiotic, as he called them tonight and told them the pain is radiating into his eye. Pt has tried IBU with minimal relief. BP 140/90 Pulse 71 Temp 36.8 C (98.3 F) Resp 16 Wt 79.4 kg (175 lb) SpO2 92% ALLERGIES No Known Allergies There is no problem list on file for this patient. No family history on file. Social History Tobacco Use Smoking status: Former Smoker Smokeless tobacco: Never Used Substance Use Topics Alcohol use: Not on file Drug use: Not on file Review of Systems Constitutional: Negative for chills, fever and malaise/fatigue. HENT: Positive for sinus pain. Negative for congestion, ear pain and sore throat. Respiratory: Negative for cough, sputum production, shortness of breath and wheezing. Cardiovascular: Negative for chest pain. Neurological: Negative for headaches. Objective Physical Exam HENT: Mouth/Throat: Dentition: Abnormal dentition. Gingival swelling and dental caries present. Comments: Cracked off teeth, with adjacent gingival swelling, most prominent in L upper teeth ASSESSMENT/PLAN: 1. Dental infection - ICD9: 522.4, ICD10: K04.7 Will go ahead and start on Augmentin for suspected dental infection. Explained that this is only a short term solution, and he needs proper evaluation and management by a dentist. Pt expressed understanding and agrees to the plan of care. - AMOXICILLIN 875 MG-POTASSIUM CLAVULANATE 125 MG TABLET Pt advised to see PCP if symptoms persist or progress. Reviewed red flags with patient and when to seek care sooner. The patient indicates understanding of these issues and agrees with the plan. Ashley Santos PA-C documented in this encounter [facility] Evaluation note Note Date & Type Note Facility Evaluation note Diagnosis Dental infection- Primary Acute apical periodontitis of pulpal origin documented in this encounter [facility] Evaluation note Note Date & Type Note Facility Evaluation note No assessment information availa [facility] Work Phone: Reason for referral (narrative) Note Date & Type Note Facility Reason for referral (narrative) No reason for referral information available [facility] Work Phone: Summary Purpose Family History Relationship Condition Age at Onset Recorded Date/T yessica Not Specified Malignant neoplasm of uterus Unknown mother Heart disease Unknown Coronary artery disease Unknown Hypertension Unknown father Heart disease Unknown Parkinson's disease Unknown Advance Directives Advance Directive Response Recorded Date/ Time Living Will No October 04 11:02pm Power of [place] No October 04, 2021 11:02pm Advance Directive Response Recorded Date/ Time Living Will No October 05 12:02am Power of [place] No October 05, 2021 12:02am Chief Complaint and Reason for Visit Chief Complaint Admit Date FASTING January 16, 2025 10:27am Additional Source Comments Source Comments (unrecognize d section and content) In the event this informatio n is protected by the Federal Confidentiality of Alcohol and Drug Abuse Patient Records regulations: The Federal rules restrict any use of the information to criminally investigate or prosecute any alcohol or drug abuse patient.[facility] Reason for Visit (unrecogniz ed section and content) Reason Comments Dental Problem chronic teeth issue, worsening x this AM (unrecognized sect ion and content) No Status Records FoundNo Status Records Found INFORMATION SOURCE (unrecogn ized section and content) DATE CREATED AUTHOR 09/27/2021 [facility] DATE CREATED AUTHOR AUTHOR'S ORGANIZ ATION 02/01/2025 [facility] Goals (unrecognized section and content) Goals may be documented in a n alternate sectionGoals may be documented in an alternate sectionGoals may be documented in an alternate section Care Teams (unrecognized sec tion and content) Team Status: Active Member Role Status Dates Dr. Florentin Pierre MD Family Provider Active Dr. Flaquito Hillman MD Primary Care Provider Active Team Status: Inactive Member Role Status Dates Dr. Flaquito Hillman MD Primary Care Provi yobany, Attending Provider, Referring Provider Active Team Status: Inactive Member Role Status Dates Dr. Flaquito Hillman MD Primary Care Provider Active Start: January 16, 2025 End: January 16, 2025 Dr. Flaquito Hillman MD Attending Provider Active Start: January 16, 2025 End: January 16, 2025 Dr. Flaquito Hillman MD Referring Provider Active Start: January 16, 2025 End: January 16, 2025 FOR RECORDS PERTAINING TO PATIENTS WHO ARE OR HAVE BEEN ENROLLED IN A CHEMICAL DEPENDENCY/SUBSTANCEABUSE PROGRAM, SOME INFORMATION MAY BE OMITTED. This clinical summary was aggregated from multiple sources. Caution should be exercised in using it in the provision of clinical care. This summary normalizes information from multiple sources, and as a consequence, information in this document may materially change the coding, format and clinical context of patient data. In addition, data may be omitted in some cases. CLINICAL DECISIONS SHOULD BE BASED ON THE PRIMARY CLINICAL RECORDS. [facility] provides no warranty or guarantee of the accuracy or completeness of information in this document.
[2025-10-07 12:50] LABS: AST(SGOT) 19 U/L (<=37); Alanine Aminotransfer ALT/SGPT 15 U/L (<=46); Albumin, Serum 4.1 g/dL (3.4-4.8); Alkaline Phosphatase 89 U/L (40-129); Anion Gap 11 (5-15); BUN 16 mg/dL (4-19); BUN/Creat Ratio 11.9 RATIO (10-20); Calcium,Total 8.8 mg/dL (7.6-11.0); Carbon Dioxide 28.5 mmol/L (21.0-32.0); Chloride 98 mmol/L (98-108); Globulin 3.1 g/dL (2.2-4.2); Glucose 103 mg/dL (70-99); PSA,Total - Annual Screen 1.30 ng/mL (0.02-4.00); Potassium 3.0 mmol/L (3.3-5.1)
== END | disposition home or self-care (01) ==
LOC: MTLAB 10:32
PROVIDERS: PCP Family Medicine; Referring Provider Family Medicine; Visit Provider Family Medicine
DX: I10 Essential (primary) hypertension (principal); Z12.5 Encounter for screening for malignant neoplasm of prostate
CPT/HCPCS: 36415; 80053; 84153; G0103